=== PATIENT | male | born 1950 | race Caucasian/White ===

== ENCOUNTER 2018-02-10 13:08 | Inpatient (IN) | payer MEDICARE, OTHER ==
[~2018-02-10] VITALS: Ht 180.3 cm; Wt 74.6 kg
[~2018-02-10 13:08] MED LIST: ASPIRIN 81M81 MG/TA2 PO; BETAPACE 120MG120 MG PO; BETAPACE 80MG80 MG PO; COLACE 100100 MG/CAP PO; COUMADIN; DULCOLAX S10 MG/SUPP RC; FLOMAX 0.40.4 MG/CAP PO; FORTAMET1000 MG PO; GOOD NEIGH1200 MG/15 PO; LIPITOR 10MG10 MG PO; LISINOPRIL10 MG PO; METAMUCIL3.4 GM/DOS PO; NIACIN250 M2 PO; NIASPAN1000 MG PO; OXYCONTIN 20MG20 MG PO; PERCOCET 325 MG1 TAB PO; PLAVIX 75MG TAB75 MG PO; PRINIVIL20 MG PO; PROSCAR 5MG5 MG PO; TYLENOL 325MG325 MG PO; VITAMIN B-1000 MCG/T PO; VYTORIN; WARFARIN SODIUM5 MG PO
[2018-02-10 14:31] VITALS: BP 130/75; PULSE 68; TEMP 98.5
[2018-02-10 17:08] VITALS: BP 130/75; PULSE 70; TEMP 98.5
[2018-02-11 05:39] VITALS: BP 132/76; PULSE 80; TEMP 98.4
[2018-02-11 18:15] VITALS: BP 127/62; PULSE 81; TEMP 97.8
[2018-02-12 06:00] VITALS: BP 146/84; PULSE 60; TEMP 98.2
[2018-02-12 16:12] VITALS: BP 120/57; PULSE 65; TEMP 98.1
[2018-02-13 05:17] VITALS: BP 134/58; PULSE 86; TEMP 98.7
[2018-02-13 15:53] VITALS: BP 102/60; PULSE 75; TEMP 97.8
[2018-02-14 05:17] VITALS: BP 92/64; PULSE 66; TEMP 98
[2018-02-14 08:30] VITALS: BP 102/70
[2018-02-14 15:59] VITALS: BP 100/55; PULSE 69; TEMP 98.1
[2018-02-15 05:34] VITALS: BP 116/57; PULSE 51; TEMP 97.8
[2018-02-15 16:17] VITALS: BP 115/51; PULSE 66; TEMP 97.8
[2018-02-16 05:49] VITALS: BP 153/78; PULSE 71; TEMP 98.3
[2018-02-16 18:43] VITALS: BP 122/67; PULSE 52; TEMP 97.8
[2018-02-17 03:54] VITALS: BP 121/69; PULSE 65; TEMP 98
[2018-02-17 17:40] VITALS: BP 109/75; PULSE 82; TEMP 98.4
[2018-02-18 05:34] VITALS: BP 112/72; PULSE 80; TEMP 98.1
[2018-02-18 16:54] VITALS: BP 133/65; PULSE 79; TEMP 97.5
[2018-02-19 06:00] VITALS: BP 167/80; PULSE 62; TEMP 97.8
[2018-02-19 16:36] VITALS: BP 122/77; PULSE 79; TEMP 98.1
[2018-02-20 06:00] VITALS: BP 133/80; PULSE 60; TEMP 98.3
[2018-02-20 15:31] VITALS: BP 118/69; PULSE 84; TEMP 97.8
[2018-02-21 04:54] VITALS: BP 139/65; PULSE 75; TEMP 98.1
[2018-02-21 15:43] VITALS: BP 136/71; PULSE 68; TEMP 98.3
[2018-02-22 04:11] VITALS: BP 139/83; PULSE 73; TEMP 97.9
[2018-02-22 16:32] VITALS: BP 121/66; PULSE 76; TEMP 98.1
[2018-02-23 05:04] VITALS: BP 147/83; PULSE 65; TEMP 98.3
[2018-02-23 15:07] VITALS: BP 127/72; PULSE 67; TEMP 97.9
[2018-02-24 05:57] VITALS: BP 125/66; PULSE 58; TEMP 97.6
[2018-02-24] MEDS ORDERED: OXYCONTIN 20MG20 MG PO (08:34)
[2018-02-24] MEDS ORDERED: PERCOCET 325 MG1 TAB PO (08:34)
== END 2018-02-24 11:25 | disposition home or self-care (01) | DRG 57 ==
DX: I69.354 Hemiplegia and hemiparesis following cerebral infarction affecting left non-dominant side (principal); E44.0 Moderate protein-calorie malnutrition; I10 Essential (primary) hypertension; E11.9 Type 2 diabetes mellitus without complications; I48.91 Unspecified atrial fibrillation; R33.9 Retention of urine, unspecified
CPT/HCPCS: 99222-AI; 99232-AI; 99239; J1815

== ENCOUNTER 2018-03-03 12:53 | Outpatient (RCR) | payer MEDICARE, OTHER ==
[2018-05-01] MEDS ORDERED: EFFE25TA (17:13)
[2018-05-01] MEDS ORDERED: CYMBALTA 30MG30 MG PO (17:14)
== END 2018-05-22 10:30 | disposition home or self-care (01) ==
LOC: MKS.ESL.OT 12:53
DX: I69.354 Hemiplegia and hemiparesis following cerebral infarction affecting left non-dominant side (principal)
CPT/HCPCS: G8987-GO; G8988-GO; G8989-GO

== ENCOUNTER 2018-05-01 14:24 | Emergency (ER) | payer MEDICARE, OTHER ==
[~2018-05-01] VITALS: Ht 180.3 cm; Wt 72.7 kg
[2018-05-01 14:31] VITALS: BP 99/70; TEMP 98.7
[2018-05-01 15:50] LABS: BASO % 0.4 % (0.0-2.0); EOS # 0.2 (0.0-0.7); EOS % 2.6 % (0-4.0); GRAN # 5.5 (1.4-6.5); GRAN % 74.2 % (42.2-75.2); HEMATOCRIT 40.9 % (42.0-52.0); HEMOGLOBIN 13.4 g/dl (13.5-18.0); LYMPH # 1.2 (1.2-3.4); LYMPH % 16.1 % (20.0-51.0); MEAN CELL VOLUME 93 fl (80.0-100.0); MEAN CORPUSCULAR HEMOGLOBIN 30 pg (27.0-31.0); MEAN CORPUSCULAR HGB CONC 33 g/dl (33.0-37.0); MONO # 0.5 (0.1-0.6); MONO % 6.2 % (1.7-9.3); PLATELET COUNT 358 K/mm3 (130-400); RED BLOOD COUNT 4.41 M/mm3 (4.20-5.60); REDCELL DISTRIBUTION WIDTH-CV 12.5 % (11.5-14.5)
[2018-05-01 16:00] LABS: ALBUMIN 3.6 gm/dL (3.5-5.0); BILIRUBIN,TOTAL 0.7 mg/dL (0.0-1.0); CALCIUM 8.8 mg/dL (8.4-10.2); CREATININE, serum 0.52 mg/dL (0.66-1.25); POTASSIUM 4.2 mmol/L (3.4-5.0); TOTAL PROTEIN 7.1 gm/dL (6.4-8.2)
[2018-05-01 16:18] LABS: COLLECTION METHOD CLEAN CATCH
[2018-05-01 16:27] LABS: MUCOUS Present /lpf; SQUAMOUS EPITHELIAL 0-2 /hpf; URINE BACTERIA None Seen /hpf; URINE RBC >50 /hpf
[2018-05-01 16:28] LABS: PH 6 (5-8); URINE APPEARANCE Clear; URINE BILIRUBIN Negative (NEGATIVE); URINE BLOOD 2+ (NEGATIVE); URINE COLOR Yellow; URINE GLUCOSE Negative (NEGATIVE); URINE KETONE Negative (NEGATIVE); URINE LEUKOCYTE ESTERASE Trace (NEGATIVE); URINE NITRATE Negative (NEGATIVE); URINE PROTEIN(semi-quant) 1+ (NEGATIVE); URINE UROBILINOGEN >=4.0 mg/dL (NEGATIVE)
[2018-05-01] MEDS ORDERED: EFFE25TA (17:13)
[2018-05-01] MEDS ORDERED: CYMBALTA 30MG30 MG PO (17:14)
[2018-05-01 17:22] VITALS: PULSE 72
== END 2018-05-01 17:23 | disposition home or self-care (01) ==
LOC: COL.ER 14:24
PROVIDERS: Family Medicine
DX: S70.02XA Contusion of left hip, initial encounter (principal); I10 Essential (primary) hypertension; Z86.73 Personal history of transient ischemic attack (TIA), and cerebral infarction without residual deficits; Z87.891 Personal history of nicotine dependence; Z79.02 Long term (current) use of antithrombotics/antiplatelets; Z79.82 Long term (current) use of aspirin; W19.XXXA Unspecified fall, initial encounter

== ENCOUNTER 2018-06-07 15:08 | Observation (INO) | payer MEDICARE, OTHER ==
[~2018-06-07] VITALS: Ht 180.3 cm; Wt 70.9 kg
[~2018-06-07 15:08] MED LIST changes: +CYMBALTA 30MG30 MG PO; +EFFE25TA
[2018-06-07 16:10] LABS: BASO % 0.3 % (0.0-2.0); EOS # 0.1 (0.0-0.7); EOS % 0.7 % (0-4.0); GRAN # 5.1 (1.4-6.5); GRAN % 74.4 % (42.2-75.2); HEMATOCRIT 44.4 % (42.0-52.0); HEMOGLOBIN 14.4 g/dl (13.5-18.0); LYMPH # 1.3 (1.2-3.4); LYMPH % 18.6 % (20.0-51.0); MEAN CELL VOLUME 92 fl (80.0-100.0); MEAN CORPUSCULAR HEMOGLOBIN 30 pg (27.0-31.0); MEAN CORPUSCULAR HGB CONC 32 g/dl (33.0-37.0); MEAN PLATELET VOLUME 10.8 fl (7.4-10.4); MONO # 0.4 (0.1-0.6); MONO % 5.6 % (1.7-9.3); PLATELET COUNT 276 K/mm3 (130-400); RED BLOOD COUNT 4.82 M/mm3 (4.20-5.60); REDCELL DISTRIBUTION WIDTH-CV 12.5 % (11.5-14.5)
[2018-06-07] MEDS ORDERED: GENTLE LAXATIVE10 MG RC (16:17)
[2018-06-07] MEDS ORDERED: COLACE 100100 MG/CAP PO (16:18)
[2018-06-07 16:19] LABS: ALANINE AMINOTRANSFERASE 33 U/L (21-72); ALBUMIN 3.9 gm/dL (3.5-5.0); ALKALINE PHOSPHATASE 66 U/L (50-136); ANION GAP 9 mmol/L (7-16); AST,SGOT 30 U/L (15-37); BILIRUBIN,TOTAL 0.5 mg/dL (0.0-1.0); BLOOD UREA NITROGEN 14 mg/dL (9-20); C-REACTIVE PROTEIN 0.6 mg/dL (0.0-0.9); CALCIUM 8.9 mg/dL (8.4-10.2); CARBON DIOXIDE 29 mmol/L (22-30); CHLORIDE 101 mmol/L (98-107); CREATININE, serum 0.46 mg/dL (0.66-1.25); GLUCOSE 156 mg/dL (74-106); LIPASE 74 U/L (23-300); POTASSIUM 3.8 mmol/L (3.4-5.0); SODIUM 139 mmol/L (137-145); TOTAL PROTEIN 7.3 gm/dL (6.4-8.2)
[2018-06-07] MEDS ORDERED: EFFEXOR 75M75 MG/TAB PO (16:19)
[2018-06-07] MEDS ORDERED: GOOD NEIGH1200 MG/15 PO (16:19)
[2018-06-07 16:36] LABS: TROPONIN-I < 0.012 ng/mL (0.000-0.034)
[2018-06-07] MEDS ORDERED: ZEBETA 5MG5 MG PO (18:25)
[2018-06-07] MEDS ORDERED: TYLENOL 325MG325 MG PO (19:44)
[2018-06-07] MEDS ORDERED: GOOD NEIGH3.4 GM/Dos PO (19:48)
[2018-06-07 21:14] VITALS: BP 155/86; PULSE 70; TEMP 98.4
[2018-06-08 01:45] VITALS: BP 152/77; PULSE 56; TEMP 98.2
[2018-06-08 08:14] VITALS: BP 151/75; PULSE 69; TEMP 97.6
[2018-06-08 14:30] VITALS: BP 160/57; PULSE 74; TEMP 97.9
[2018-06-08 15:14] LABS: COLLECTION METHOD CLEAN CATCH
[2018-06-08 15:23] LABS: MUCOUS Present /lpf; PH 5 (5-8); SQUAMOUS EPITHELIAL None Seen /hpf; URINE APPEARANCE Clear; URINE BACTERIA None Seen /hpf; URINE BILIRUBIN Negative (NEGATIVE); URINE BLOOD Negative (NEGATIVE); URINE COLOR Yellow; URINE GLUCOSE Negative (NEGATIVE); URINE KETONE Negative (NEGATIVE); URINE LEUKOCYTE ESTERASE Negative (NEGATIVE); URINE NITRATE Negative (NEGATIVE); URINE PROTEIN(semi-quant) Negative (NEGATIVE); URINE UROBILINOGEN Negative (NEGATIVE)
== END 2018-06-08 17:50 | disposition home or self-care (01) ==
LOC: COL.ER 15:08 → MEDICAL 17:44
PROVIDERS: Emergency Medicine; Physician Assistant
DX: R53.1 Weakness (principal); I10 Essential (primary) hypertension; I48.91 Unspecified atrial fibrillation; E11.9 Type 2 diabetes mellitus without complications; N40.0 Benign prostatic hyperplasia without lower urinary tract symptoms; L40.9 Psoriasis, unspecified; Z88.8 Allergy status to other drugs, medicaments and biological substances; Z79.82 Long term (current) use of aspirin; Z86.718 Personal history of other venous thrombosis and embolism; Z86.711 Personal history of pulmonary embolism; Z86.73 Personal history of transient ischemic attack (TIA), and cerebral infarction without residual deficits; Z87.891 Personal history of nicotine dependence; Z82.49 Family history of ischemic heart disease and other diseases of the circulatory system; Z82.3 Family history of stroke; Z83.3 Family history of diabetes mellitus
CPT/HCPCS: G0378; G8978-GP; G8979-GP; G8987-GO; G8988-GO; J7030

== ENCOUNTER 2018-06-08 11:11 | Inpatient (IN) | payer MEDICARE, OTHER ==
[~2018-06-08] VITALS: Ht 180.3 cm; Wt 72.0 kg
[~2018-06-08 11:11] MED LIST changes: +EFFEXOR 75M75 MG/TAB PO; +GENTLE LAXATIVE10 MG RC; +GOOD NEIGH3.4 GM/Dos PO; +ZEBETA 5MG5 MG PO
[2018-06-11 19:14] VITALS: BP 138/93; PULSE 90; TEMP 98.4
[2018-06-11 20:44] VITALS: BP 138/93; PULSE 90; TEMP 98.4
[2018-06-12 05:17] VITALS: BP 159/73; PULSE 87; TEMP 97.4
[2018-06-12 18:14] VITALS: BP 138/92; PULSE 77; TEMP 98.2
[2018-06-13 05:10] VITALS: BP 122/67; PULSE 66; TEMP 98.3
[2018-06-13 17:42] VITALS: BP 105/55; PULSE 65; TEMP 97.6
[2018-06-14 04:54] VITALS: BP 108/54; PULSE 63; TEMP 98.1
[2018-06-14 18:29] VITALS: BP 105/51; PULSE 85; TEMP 98
[2018-06-15 06:14] VITALS: BP 141/74; PULSE 86; TEMP 98.5
[2018-06-15 16:45] LABS: COLLECTION METHOD RANDOM VOIDED
[2018-06-15 16:51] LABS: MUCOUS Present /lpf; PH 5 (5-8); SQUAMOUS EPITHELIAL None Seen /hpf; URINE APPEARANCE Clear; URINE BACTERIA None Seen /hpf; URINE BILIRUBIN Negative (NEGATIVE); URINE BLOOD 1+ (NEGATIVE); URINE COLOR Yellow; URINE GLUCOSE Negative (NEGATIVE); URINE KETONE Negative (NEGATIVE); URINE LEUKOCYTE ESTERASE Negative (NEGATIVE); URINE NITRATE Negative (NEGATIVE); URINE PROTEIN(semi-quant) Negative (NEGATIVE); URINE RBC >50 /hpf; URINE UROBILINOGEN Negative (NEGATIVE)
[2018-06-15 18:47] VITALS: BP 121/53; PULSE 85; TEMP 98.2
[2018-06-16 03:49] VITALS: BP 123/72; PULSE 63; TEMP 98
[2018-06-16 16:00] VITALS: BP 108/64; PULSE 73; TEMP 98.1
[2018-06-17 04:24] VITALS: BP 135/57; PULSE 66; TEMP 98.5
[2018-06-17 19:02] VITALS: BP 123/68; PULSE 64; TEMP 98
[2018-06-18 06:20] VITALS: BP 138/76; PULSE 66; TEMP 97.6
[2018-06-18 19:06] VITALS: BP 142/66; PULSE 88; TEMP 98.1
[2018-06-19 06:42] VITALS: BP 155/73; PULSE 75; TEMP 98.4
[2018-06-19 17:56] VITALS: BP 127/63; PULSE 73; TEMP 98
[2018-06-20 06:23] VITALS: BP 127/64; PULSE 73; TEMP 97.8
[2018-06-20 17:53] VITALS: BP 131/69; PULSE 72; TEMP 98.1
[2018-06-21 05:20] VITALS: BP 142/66; PULSE 67; TEMP 98.6
[2018-06-21 17:54] VITALS: BP 145/74; PULSE 92; TEMP 98.1
[2018-06-22 07:34] VITALS: BP 135/88; PULSE 77; TEMP 98
[2018-06-22 15:58] LABS: COLLECTION METHOD RANDOM VOIDED
[2018-06-22 16:13] LABS: MUCOUS Present /lpf; PH 5 (5-8); SQUAMOUS EPITHELIAL 0-2 /hpf; URINE APPEARANCE Hazy; URINE BACTERIA Rare /hpf; URINE BILIRUBIN Negative (NEGATIVE); URINE BLOOD 1+ (NEGATIVE); URINE COLOR Yellow; URINE GLUCOSE Negative (NEGATIVE); URINE KETONE Negative (NEGATIVE); URINE LEUKOCYTE ESTERASE Negative (NEGATIVE); URINE NITRATE Negative (NEGATIVE); URINE PROTEIN(semi-quant) 1+ (NEGATIVE); URINE RBC >50 /hpf; URINE UROBILINOGEN Negative (NEGATIVE)
[2018-06-22 17:49] VITALS: BP 128/70; PULSE 84; TEMP 98.2
[2018-06-23 06:08] VITALS: BP 149/65; PULSE 77; TEMP 98.1
[2018-06-23] MEDS ORDERED: LEVSIN0.125 M1 SL (08:41)
[2018-06-23] MEDS ORDERED: EFFEXOR-XR150 MG PO (08:42)
== END 2018-06-23 14:45 | disposition home or self-care (01) | DRG 57 ==
PROVIDERS: Family Medicine; Internal Medicine
DX: I69.354 Hemiplegia and hemiparesis following cerebral infarction affecting left non-dominant side (principal); I69.322 Dysarthria following cerebral infarction; Z91.81 History of falling; I48.91 Unspecified atrial fibrillation; E11.9 Type 2 diabetes mellitus without complications; Z79.01 Long term (current) use of anticoagulants; I10 Essential (primary) hypertension; N40.1 Benign prostatic hyperplasia with lower urinary tract symptoms; R31.9 Hematuria, unspecified; Z86.718 Personal history of other venous thrombosis and embolism; Z86.711 Personal history of pulmonary embolism; Z87.891 Personal history of nicotine dependence; F06.31 Mood disorder due to known physiological condition with depressive features; G89.29 Other chronic pain; L40.9 Psoriasis, unspecified; R33.9 Retention of urine, unspecified
CPT/HCPCS: 99222-AI; 99232-AI; 99239; G0463

== ENCOUNTER 2018-08-22 16:26 | Emergency (ER) | payer MEDICARE, OTHER ==
[~2018-08-22] VITALS: Ht 180.3 cm; Wt 70.9 kg
[~2018-08-22 16:26] MED LIST changes: +EFFEXOR-XR150 MG PO; +LEVSIN0.125 M1 SL
[2018-08-22 16:30] VITALS: TEMP 98.6
[2018-08-22] MEDS ORDERED: LIPITOR 40MG TA40 MG PO (17:00)
[2018-08-22 17:25] LABS: BASO % 0.6 % (0.0-2.0); EOS # 0.2 (0.0-0.7); EOS % 2.3 % (0-4.0); GRAN # 4.9 (1.4-6.5); HEMATOCRIT 38.8 % (42.0-52.0); HEMOGLOBIN 12.8 g/dl (13.5-18.0); LYMPH # 1.3 (1.2-3.4); LYMPH % 18.4 % (20.0-51.0); MEAN CELL VOLUME 91 fl (80.0-100.0); MEAN CORPUSCULAR HEMOGLOBIN 30 pg (27.0-31.0); MEAN CORPUSCULAR HGB CONC 33 g/dl (33.0-37.0); MEAN PLATELET VOLUME 10.2 fl (7.4-10.4); MONO # 0.5 (0.1-0.6); MONO % 7.4 % (1.7-9.3); PLATELET COUNT 226 K/mm3 (130-400); RED BLOOD COUNT 4.26 M/mm3 (4.20-5.60); REDCELL DISTRIBUTION WIDTH-CV 12.7 % (11.5-14.5)
[2018-08-22 17:47] LABS: ALBUMIN 3.5 gm/dL (3.5-5.0); BILIRUBIN,TOTAL 0.5 mg/dL (0.0-1.0); CALCIUM 8.8 mg/dL (8.4-10.2); CREATININE, serum 0.59 mg/dL (0.66-1.25); POTASSIUM 4.2 mmol/L (3.4-5.0); TOTAL PROTEIN 6.6 gm/dL (6.4-8.2)
[2018-08-22 17:54] LABS: COLLECTION METHOD CLEAN CATCH
[2018-08-22 18:03] LABS: MUCOUS Present /lpf; PH 5 (5-8); SQUAMOUS EPITHELIAL None Seen /hpf; URINE APPEARANCE Clear; URINE BACTERIA None Seen /hpf; URINE BILIRUBIN Negative (NEGATIVE); URINE BLOOD Negative (NEGATIVE); URINE COLOR Yellow; URINE GLUCOSE Negative (NEGATIVE); URINE KETONE Negative (NEGATIVE); URINE LEUKOCYTE ESTERASE Negative (NEGATIVE); URINE NITRATE Negative (NEGATIVE); URINE PROTEIN(semi-quant) Negative (NEGATIVE); URINE RBC 0-2 /hpf; URINE UROBILINOGEN >=4.0 mg/dL (NEGATIVE)
[2018-08-22 18:26] VITALS: BP 142/81; PULSE 79
== END 2018-08-22 18:28 | disposition home or self-care (01) ==
LOC: COL.ER 16:26
PROVIDERS: Emergency Medicine
DX: S60.052A Contusion of left little finger without damage to nail, initial encounter (principal); M20.039 Swan-neck deformity of unspecified finger(s); R26.89 Other abnormalities of gait and mobility; I10 Essential (primary) hypertension; F32.9 Major depressive disorder, single episode, unspecified; I48.91 Unspecified atrial fibrillation; Z86.711 Personal history of pulmonary embolism; Z86.718 Personal history of other venous thrombosis and embolism; Z79.02 Long term (current) use of antithrombotics/antiplatelets; Z86.73 Personal history of transient ischemic attack (TIA), and cerebral infarction without residual deficits; Z79.82 Long term (current) use of aspirin; W19.XXXA Unspecified fall, initial encounter

== ENCOUNTER → 2018-10-13 | Outpatient (CLI) | payer MEDICARE, OTHER ==
[~2018-10-13] MED LIST changes: +LIPITOR 40MG TA40 MG PO
== END ==
LOC: COL.RAD 12:17
DX: I48.2 Chronic atrial fibrillation (principal); I65.23 Occlusion and stenosis of bilateral carotid arteries; R25.9 Unspecified abnormal involuntary movements; Z86.73 Personal history of transient ischemic attack (TIA), and cerebral infarction without residual deficits
CPT/HCPCS: Q9967

== ENCOUNTER 2018-12-14 13:33 | Day surgery (SDC) | payer MEDICARE, OTHER ==
[~2018-12-14] VITALS: Ht 180.3 cm; Wt 78.0 kg
--- NOTE | 2018-12-14 14:00 | NUR ---
admitted per WC to room 354 for colonoscopy prep for 12/15, assisted out of WC and into gown and then into bed, has history of drop foot on left and AFO brace on
--- NOTE | 2018-12-14 14:30 | NUR ---
full assessment completed, see interventions for further info, at bedside and assisted with admission assessment
[2018-12-14] MEDS ORDERED: BOTOX 100100 U/VIAL INJ (14:47)
[2018-12-14 15:08] VITALS: BP 153/89; PULSE 71; TEMP 98.4
--- NOTE | 2018-12-14 15:15 | NUR ---
Dr Fernández was in to see patient, provided patient with cola per his request
--- NOTE | 2018-12-14 16:11 | NUR ---
and patient visiting with community mental health social worker, kishor states pain is8/10 but this is normal rating
--- NOTE | 2018-12-14 16:20 | NUR ---
HEATHER and SW student met with patient and to discuss discharge planning. Patient lives with his in [place] and goes to outpatient therapy at [facility]. His reports [facility] as patient is weak and does fall often. She does not want to go against his wishes and put him in assisted care yet. Patient had questions about his DPOA and living will. HEATHER informed them we have a DPOA in the computer already and explained the living will. Patients PCP is Dr Toledo and he obtains his medications from [facility]. HEATHER will continue to follow.
--- NOTE | 2018-12-14 18:38 | NUR ---
bedside shift report given to CLAIRE Machado
--- NOTE | 2018-12-14 20:00 | NUR ---
PT HAS BEEN DRINKING THE GOLYTELY WITHOUT ISSUE THIS NOC, AND IS HAVING NOTED STOOLS. LARGE FORMED STOOL NOTED INTITALLY WITH SOME SLIGHT BLOOD ON THE FECES. STOOLS BECAME LOOSE AFTER INITAL STOOL.
[2018-12-14 20:11] VITALS: BP 183/91; PULSE 116; TEMP 97.5
--- NOTE | 2018-12-14 22:00 | NUR ---
PT FINISHED GOLYTELY AND IS HAVING FREQUENT LARGE LOOSE WATERY STOOLS.
[2018-12-14 23:23] VITALS: BP 184/88; PULSE 80; TEMP 97.7
--- NOTE | 2018-12-14 23:25 | NUR ---
PT HAS ELEVATED BLOOD PRESSURE THIS HS, THIS NURSE CALLED MERON FONG FOR ORDERS FOR PRN HYDRALZINE. ADMINSITERED PRN HYDRALZINE. WILL CONTINE TO MONITOR VITALS.
--- NOTE | 2018-12-14 23:40 | NUR ---
PT HAS C/O PAIN 8-10 AND HAD SCHEDULED PAIN PILL AND REQUESTED HIS PRN PERCOCET.
[2018-12-15 04:11] VITALS: BP 155/97; PULSE 91; TEMP 98.8
--- NOTE | 2018-12-15 04:28 | NUR ---
PT HAD ALOT OF LOOSE STOOLS THIS NOC. NOT COMPLETELY CLEAR AT THIS TIME BUT ARE A LIGHT COLOR AND ARE VERY WATERY.
--- NOTE | 2018-12-15 06:35 | NUR ---
PT STOOLS HAVE DECREASED THIS AM. PT HAVING CLEAR TO YELLOW TINGED STOOLS WITHOUT ANY SOLIDITY TO THEM. HAS NEEDED PRN PAIN MEDICAION OVERNIGHT AND RECIEVED MEDS ABLE TOO. NO OTHER ISSUES OR CONSERNS VOICED.
--- NOTE | 2018-12-15 08:00 | NUR ---
Patient down for colonoscopy
[2018-12-15 08:17] VITALS: BP 159/83; PULSE 68
--- NOTE | 2018-12-15 08:40 | NUR ---
Patient in bed resting. Alert and oriented x 3. Shift assessment complete. Denies pain at this time. Denies further needs at this time.
--- NOTE | 2018-12-15 10:53 | NUR ---
SW met with patient and notary and completed living will. Copy on chart and original and copies provided to patient.
--- NOTE | 2018-12-15 12:15 | NUR ---
Patient in bed eating lunch. Post op VS stable. Patient request percocet for pain to left side of body 04/14, states that scheduled oxycodone did not help much with the pain, patient states pain is chronic. Given medications per orders. Discharge instructions provided to patient. Patient educated on maintining follow up appointments. Spouse at bedside patient will call when ready to leave.
[2018-12-15 14:34] VITALS: BP 110/64; PULSE 71
== END 2018-12-15 12:30 | disposition home or self-care (01) ==
LOC: SDCO 13:33 → SURG 13:33 → MEDICAL 13:33 → SDCO 12-15 11:45
DX: Z12.11 Encounter for screening for malignant neoplasm of colon (principal); Z86.010 Personal history of colon polyps; K57.30 Diverticulosis of large intestine without perforation or abscess without bleeding; D50.9 Iron deficiency anemia, unspecified; I10 Essential (primary) hypertension; I48.91 Unspecified atrial fibrillation; E11.9 Type 2 diabetes mellitus without complications; N40.0 Benign prostatic hyperplasia without lower urinary tract symptoms; L40.9 Psoriasis, unspecified; Z86.718 Personal history of other venous thrombosis and embolism; Z86.711 Personal history of pulmonary embolism; Z86.73 Personal history of transient ischemic attack (TIA), and cerebral infarction without residual deficits; E78.5 Hyperlipidemia, unspecified; Z79.01 Long term (current) use of anticoagulants; Z79.82 Long term (current) use of aspirin; Z82.49 Family history of ischemic heart disease and other diseases of the circulatory system; Z88.3 Allergy status to other anti-infective agents; Z87.891 Personal history of nicotine dependence; G89.29 Other chronic pain; M19.90 Unspecified osteoarthritis, unspecified site
CPT/HCPCS: OP; J0360; J2704; J3010

== ENCOUNTER 2019-01-05 13:01 | Emergency (ER) | payer MEDICARE, OTHER ==
[~2019-01-05] VITALS: Ht 180.3 cm; Wt 75.5 kg
[~2019-01-05 13:01] MED LIST changes: +BOTOX 100100 U/VIAL INJ
[2019-01-05 14:49] LABS: BASO % 0.2 % (0.0-2.0); GRAN # 8.2 (1.4-6.5); GRAN % 85.8 % (42.2-75.2); HEMATOCRIT 42.7 % (42.0-52.0); LYMPH # 0.7 (1.2-3.4); LYMPH % 7.4 % (20.0-51.0); MEAN CELL VOLUME 91 fl (80.0-100.0); MEAN CORPUSCULAR HEMOGLOBIN 30 pg (27.0-31.0); MEAN CORPUSCULAR HGB CONC 33 g/dl (33.0-37.0); MEAN PLATELET VOLUME 10.5 fl (7.4-10.4); MONO # 0.6 (0.1-0.6); MONO % 6.2 % (1.7-9.3); PLATELET COUNT 234 K/mm3 (130-400); RED BLOOD COUNT 4.72 M/mm3 (4.20-5.60); REDCELL DISTRIBUTION WIDTH-CV 13.1 % (11.5-14.5)
[2019-01-05 14:58] LABS: COLLECTION METHOD CLEAN CATCH
[2019-01-05 15:09] LABS: MUCOUS Present /lpf; PH 6 (5-8); SQUAMOUS EPITHELIAL None Seen /hpf; URINE APPEARANCE Clear; URINE BACTERIA Rare /hpf; URINE BILIRUBIN Negative (NEGATIVE); URINE BLOOD 3+ (NEGATIVE); URINE COLOR Yellow; URINE GLUCOSE Negative (NEGATIVE); URINE KETONE Negative (NEGATIVE); URINE LEUKOCYTE ESTERASE Negative (NEGATIVE); URINE NITRATE Negative (NEGATIVE); URINE PROTEIN(semi-quant) Negative (NEGATIVE); URINE RBC 20-50 /hpf; URINE UROBILINOGEN Negative (NEGATIVE)
[2019-01-05 15:25] LABS: ALANINE AMINOTRANSFERASE 18 U/L (21-72); ALBUMIN 3.6 gm/dL (3.5-5.0); ALKALINE PHOSPHATASE 82 U/L (50-136); ANION GAP 9 mmol/L (7-16); AST,SGOT 27 U/L (15-37); BILIRUBIN,TOTAL 0.8 mg/dL (0.0-1.0); BLOOD UREA NITROGEN 15 mg/dL (9-20); C-REACTIVE PROTEIN 2.6 mg/dL (0.0-0.9); CALCIUM 9.1 mg/dL (8.4-10.2); CARBON DIOXIDE 27 mmol/L (22-30); CHLORIDE 105 mmol/L (98-107); CREATININE, serum 0.84 (0.66-1.25); GLUCOSE 116 mg/dL (74-106); POTASSIUM 4.3 mmol/L (3.4-5.0); SODIUM 142 mmol/L (137-145); TOTAL PROTEIN 7.2 gm/dL (6.4-8.2)
[2019-01-05 15:34] LABS: TROPONIN-I < 0.012 ng/mL (0.000-0.035)
[2019-01-05] MEDS ORDERED: ZOFRAN 4MG T4 MG/TAB PO (16:15)
[2019-01-05 16:45] VITALS: BP 155/76; PULSE 81; TEMP 98.2
== END 2019-01-05 16:45 | disposition home or self-care (01) ==
LOC: COL.ER 13:01
PROVIDERS: Emergency Medicine
DX: R53.1 Weakness (principal); R11.2 Nausea with vomiting, unspecified; R31.9 Hematuria, unspecified; E11.9 Type 2 diabetes mellitus without complications; I10 Essential (primary) hypertension; I48.91 Unspecified atrial fibrillation; Z87.891 Personal history of nicotine dependence; Z86.73 Personal history of transient ischemic attack (TIA), and cerebral infarction without residual deficits; Z86.718 Personal history of other venous thrombosis and embolism; Z86.711 Personal history of pulmonary embolism; Z79.82 Long term (current) use of aspirin; Z79.02 Long term (current) use of antithrombotics/antiplatelets
CPT/HCPCS: J2405; J7030

== ENCOUNTER 2019-03-09 12:59 | Inpatient (IN) | payer MEDICARE, OTHER ==
[~2019-03-09] VITALS: Ht 180.3 cm; Wt 79.5 kg
[~2019-03-09 12:59] MED LIST changes: +ZOFRAN 4MG T4 MG/TAB PO
[2019-03-09 14:00] LABS: BASO % 0.3 % (0.0-2.0); EOS # 0.1 (0.0-0.7); EOS % 1.2 % (0-4.0); GRAN # 10.1 (1.4-6.5); GRAN % 85.3 % (42.2-75.2); HEMATOCRIT 43.7 % (42.0-52.0); HEMOGLOBIN 14.1 g/dl (13.5-18.0); LYMPH # 0.9 (1.2-3.4); LYMPH % 7.7 % (20.0-51.0); MEAN CELL VOLUME 92 fl (80.0-100.0); MEAN CORPUSCULAR HEMOGLOBIN 30 pg (27.0-31.0); MEAN CORPUSCULAR HGB CONC 32 g/dl (33.0-37.0); MEAN PLATELET VOLUME 10.3 fl (7.4-10.4); MONO # 0.6 (0.1-0.6); MONO % 5.2 % (1.7-9.3); PLATELET COUNT 269 K/mm3 (130-400); RED BLOOD COUNT 4.76 M/mm3 (4.20-5.60)
[2019-03-09 14:12] LABS: ALANINE AMINOTRANSFERASE 14 U/L (21-72); ALBUMIN 3.7 gm/dL (3.5-5.0); ALKALINE PHOSPHATASE 69 U/L (50-136); ANION GAP 9 mmol/L (7-16); AST,SGOT 21 U/L (15-37); BILIRUBIN,TOTAL 0.7 mg/dL (0.0-1.0); BLOOD UREA NITROGEN 13 mg/dL (9-20); CARBON DIOXIDE 27 mmol/L (22-30); CHLORIDE 105 mmol/L (98-107); CREATININE, serum 0.51 (0.66-1.25); GLUCOSE 115 mg/dL (74-106); POTASSIUM 3.8 mmol/L (3.4-5.0); SODIUM 142 mmol/L (137-145); TOTAL PROTEIN 7.2 gm/dL (6.4-8.2)
[2019-03-09 14:25] LABS: TROPONIN-I < 0.012 ng/mL (0.000-0.035)
[2019-03-09 15:21] LABS: MUCOUS Present /lpf; PH 5 (5-8); SQUAMOUS EPITHELIAL None Seen /hpf; URINE APPEARANCE Hazy; URINE BACTERIA None Seen /hpf; URINE BILIRUBIN Negative (NEGATIVE); URINE BLOOD 3+ (NEGATIVE); URINE COLOR Yellow; URINE GLUCOSE Negative (NEGATIVE); URINE KETONE Negative (NEGATIVE); URINE LEUKOCYTE ESTERASE 1+ (NEGATIVE); URINE NITRATE Negative (NEGATIVE); URINE PROTEIN(semi-quant) 1+ (NEGATIVE); URINE RBC >50 /hpf; URINE UROBILINOGEN Negative (NEGATIVE)
[2019-03-09 15:45] LABS: COLLECTION METHOD CATHETER
[2019-03-09] MEDS ORDERED: PERCOCET 325 MG1 TA3 PO (17:47)
[2019-03-09] MEDS ORDERED: EFFEXOR-XR150 MG PO (19:02)
[2019-03-09] MEDS ORDERED: OXYCONTIN 20MG20 MG PO (19:03)
[2019-03-09] MEDS ORDERED: PLAVIX 75MG TAB75 MG PO (19:05)
[2019-03-09] MEDS ORDERED: VITAMIN B12 1541 TAB PO (19:08)
[2019-03-09] MEDS ORDERED: ASPIRIN 81M81 MG/TA2 PO (19:09)
--- NOTE | 2019-03-09 20:02 | NUR ---
Pt arrived to surgical floor via wheelchair from ER. with patient. No acute distress noted. Pt put in yellow gown and high fall risk signage hung d/t hx of multiple falls. Pt c/o pain on L side that is chronic. Pt requesting pain medication. Lungs clear, but diminished in bases. Pts Spo2 95% on room air. Pt given sputum collection cup for culture. Pt reports he has not been coughing anything up. RT at bedside for breathing tx. Lab also at bedside for blood cultures. No edema noted. Pedal pulses 1+ bilaterally. BS+. Abdomen soft, nontender. Pts coccyx is reddened but blanchable. Pt reports 100% incontinence x2 days. Pt has brief on currently. Orders to place catheter are noted. Pt has L sided weakness d/t past CVA. also reports increased weakness and multiple falls over the past few days. The patient has bruising to L hand knuckles from a fall. Pt is alert and oriented at this time, but reports he has been confused at times. Bed alarm set for safety. Call light within reach. Will continue to monitor.
[2019-03-09 20:28] VITALS: BP 159/90; PULSE 71; TEMP 97.7
[2019-03-09 20:35] VITALS: BP 159/90; PULSE 71; TEMP 97.7
--- NOTE | 2019-03-09 21:15 | NUR ---
18g Coude catheter inserted via sterile technique to dependent drainage. Balloon inflated with 10cc sterile water. Urine return is clear, leonor. Pericare performed prior to insertion. New brief applied. Well tolerated by patient. phototypesetting equipment monitor was also placed. Pt is in A.fib, which he has a known history of. SCDs also applied. went home and will return in AM.
[2019-03-09 23:13] VITALS: BP 168/77; PULSE 78; TEMP 98.3
[2019-03-10] VITALS (14 sets, daily range): BP systolic 114–175; BP diastolic 56–90; PULSE 61–95; TEMP 97.8–99
--- NOTE | 2019-03-10 06:15 | NUR ---
Pt resting this AM. No distress noted. Pt has been NPO since midnight. Pt has no complaints, but states he wants "to get the show on the road". Harry catheter to dependent drainage- urinary output is clear, yellow. Blood pressure elevated but has decreased this AM to 160/85.
[2019-03-10 06:18] LABS: BASO % 0.4 % (0.0-2.0); EOS # 0.4 (0.0-0.7); EOS % 4.9 % (0-4.0); GRAN # 5.8 (1.4-6.5); GRAN % 67.1 % (42.2-75.2); HEMATOCRIT 38.1 % (42.0-52.0); HEMOGLOBIN 12.3 g/dl (13.5-18.0); LYMPH # 1.7 (1.2-3.4); LYMPH % 19.6 % (20.0-51.0); MEAN CELL VOLUME 93 fl (80.0-100.0); MEAN CORPUSCULAR HEMOGLOBIN 30 pg (27.0-31.0); MEAN CORPUSCULAR HGB CONC 32 g/dl (33.0-37.0); MEAN PLATELET VOLUME 10.5 fl (7.4-10.4); MONO # 0.7 (0.1-0.6); MONO % 7.6 % (1.7-9.3); PLATELET COUNT 222 K/mm3 (130-400); RED BLOOD COUNT 4.12 M/mm3 (4.20-5.60); REDCELL DISTRIBUTION WIDTH-CV 13.1 % (11.5-14.5)
[2019-03-10 06:29] LABS: ALBUMIN 3.1 gm/dL (3.5-5.0); BILIRUBIN,TOTAL 0.4 mg/dL (0.0-1.0); CALCIUM 8.4 mg/dL (8.4-10.2); CREATININE, serum 0.53 (0.66-1.25); POTASSIUM 3.7 mmol/L (3.4-5.0); TOTAL PROTEIN 6.4 gm/dL (6.4-8.2)
--- NOTE | 2019-03-10 08:40 | NUR ---
Patient had 500 ml of green emisis, NG back to LIS. Contacted Yesenia REGALADO to notify.
--- NOTE | 2019-03-10 09:27 | NUR ---
Patient ambulated with physical therapy, steady gait. Linens changed.
--- NOTE | 2019-03-10 11:46 | NUR ---
Clinical Laboratory Technologist offered to pray but nothing needed at this time.
--- NOTE | 2019-03-10 13:20 | NUR ---
Patient up from OR. Alert and drowsy. Spouse at bedside. Harry maintained to dependent drainage with clear peach urine present in bag. Post op fluids infusing. Post op VSS. Denies further needs at this time.
--- NOTE | 2019-03-10 14:27 | NUR ---
HEATHER met with the patient and patient's , Jess, to discuss discharge plan. The patient lives in [place] with his . The patient's reports that the patient needs assistane with ADLs and has a walker and wheelchair. Jess reports that her and her son, Dhiraj, help the patient with bathing and using the restroom. She states that he does not have any home health services, but that he does receive outpatient therapy at [facility]. She reports that the patient fell four times last week. The patient's PCP is Dr. Good Toledo and he receives his medications through [facility] or [facility]. The patient's reports no difficulties obtaining his meds. The patient's advanced directives are in EMR. The patient and his are interested in post-acute rehab upon discharge. HEATHER presented and explained the patient choice form to the patient and patient's . The patient and his preferred 1) [facility] 2) [facility]. Patient choice form signed by the patient's and she was provided a copy. HEATHER consulted [facility] Latisha Mueller. HEATHER contacted and faxed a referral to Zo at [facility]. HEATHER to continue to follow.
--- NOTE | 2019-03-10 15:31 | NUR ---
Zo, at [facility], reports that they can accept the patient for a skilled stay. Zo did request the patient's nursing notes. HEATHER faxed the patient's nursing notes to [facility]. HEATHER to inform the patient and patient's and will continue to follow.
--- NOTE | 2019-03-10 19:15 | NUR ---
Patient has done well this afternoon. Harry to dependent drainage with clear yellow urine present in bag. States pain to left side, states chronic after CVA. Denies further needs at this time. Reported off to telecommunications field engineer.
--- NOTE | 2019-03-10 22:44 | NUR ---
PT HAVING VERY LITTLE PAIN FROM [place]. PT HAVING SOME PAIN WITH HIS CHRONIC PAIN ISSUES. URINE IN MCELROY BAG CLEAR, YELLOW.
[2019-03-11 04:00] VITALS: BP 148/84; PULSE 84; TEMP 97.9
--- NOTE | 2019-03-11 06:09 | NUR ---
RESTING QUIETLY. NO STONES SEEN STRAINING URINE. URINE YVROSE IN COLOR. PERCOCET FOR PAIN.
[2019-03-11 07:12] LABS: CALCIUM 8.6 mg/dL (8.4-10.2); CREATININE, serum 0.53 (0.66-1.25); POTASSIUM 3.9 mmol/L (3.4-5.0)
[2019-03-11 07:18] LABS: BASO % 0.3 % (0.0-2.0); EOS # 0.4 (0.0-0.7); EOS % 4.8 % (0-4.0); GRAN # 5.1 (1.4-6.5); GRAN % 65.7 % (42.2-75.2); HEMATOCRIT 39.2 % (42.0-52.0); HEMOGLOBIN 12.5 g/dl (13.5-18.0); LYMPH # 1.6 (1.2-3.4); LYMPH % 20.4 % (20.0-51.0); MEAN CELL VOLUME 94 fl (80.0-100.0); MEAN CORPUSCULAR HEMOGLOBIN 30 pg (27.0-31.0); MEAN CORPUSCULAR HGB CONC 32 g/dl (33.0-37.0); MEAN PLATELET VOLUME 10.7 fl (7.4-10.4); MONO # 0.7 (0.1-0.6); MONO % 8.5 % (1.7-9.3); PLATELET COUNT 233 K/mm3 (130-400); RED BLOOD COUNT 4.19 M/mm3 (4.20-5.60); REDCELL DISTRIBUTION WIDTH-CV 13.2 % (11.5-14.5)
--- NOTE | 2019-03-11 07:30 | NUR ---
Report from CLAIRE Bradley. Pt asleep in bed, slumped over to the right side, two assist to boost up and reposition on pillows, left arm contracted, SCDs to BLE, acevedo to DD with trace of blood in urine, bed alarm on, call lt in reach. Pt requested pain med, too soon yet. BG 94.
[2019-03-11 07:32] VITALS: BP 152/71; PULSE 68; TEMP 98
--- NOTE | 2019-03-11 08:38 | NUR ---
Set up assist for breakfast, bed alarm on, call lt in reach, pt watching tv.
[2019-03-11 11:30] VITALS: BP 156/72; PULSE 63; TEMP 98.6
--- NOTE | 2019-03-11 11:48 | NUR ---
Pt bedresting watching tv, acevedo to DD with leonor hazy urine with sediment. Enc to drink more water, requests tahir milk and coke. Helped order lunch. Bed alarm on, call lt in reach, SCDs on.
[2019-03-11 16:30] VITALS: BP 161/8; BP 161/80; PULSE 78; TEMP 98
--- NOTE | 2019-03-11 18:32 | NUR ---
Pt bedresting, yellow gown and gripper socks in place, call lt in reach, IV abx infusing, SCDs on. Finished with supper, missed ACCUCHECK as pt had started eating. Helped with ordering breakfast.
--- NOTE | 2019-03-11 19:22 | NUR ---
Report to CLAIRE Bradley. Pt sitting up in bed.
[2019-03-11 20:31] VITALS: BP 148/66; PULSE 97; TEMP 98.2
[2019-03-12 01:06] VITALS: BP 175/79; PULSE 77; TEMP 98.8
--- NOTE | 2019-03-12 04:32 | NUR ---
RESTING QUIETLY. NO c/o PAIN R/T KIDNEY STONE. NO DYSPNEA. LUNG BASES DIMINISHED. PT ENCOURAGED TO DRINK MORE FLUIDS.
[2019-03-12 05:04] VITALS: BP 174/76; PULSE 92; TEMP 98.8
--- NOTE | 2019-03-12 06:55 | NUR ---
awake resting in bed, bedside shift report received from CLAIRE Bradley
--- NOTE | 2019-03-12 07:30 | NUR ---
speech therapy in to work with patient
[2019-03-12 07:53] VITALS: BP 179/80; PULSE 81; TEMP 98.1
--- NOTE | 2019-03-12 08:00 | NUR ---
resting in bed, full assessment completed, see interventions for further info, assisted with am hygiene, was incontinent of stool and care provided, assisted to sitting up to eat breakfast
--- NOTE | 2019-03-12 08:35 | NUR ---
Dr Mckeon and care team in to see patient
--- NOTE | 2019-03-12 09:15 | NUR ---
was incontinent of very large semiformed brown bowel movement, assited over to bedside commode with COLLECTION ADMINISTRATOR and occupational therapist, care provided
--- NOTE | 2019-03-12 10:44 | NUR ---
sitting up in chair and denies needs
--- NOTE | 2019-03-12 11:21 | NUR ---
Patient accepted to [facility] today. SW called patients to inform her and asked her to bring clothing. [facility] bed cancelled. Patient dc today to [facility].
[2019-03-12 12:12] VITALS: BP 147/97; PULSE 87; TEMP 98.2
[2019-03-12] MEDS ORDERED: IPRATROPIUM BROM3 M1 IH (12:16)
[2019-03-12] MEDS ORDERED: LEVAQUIN 750MG750 M1 PO (12:29)
--- NOTE | 2019-03-12 13:17 | NUR ---
has had lunch and tolerated well, discharging now to inpatient rehab
== END 2019-03-12 13:19 | DRG 659 ==
LOC: COL.ER 12:59 → SURG 18:59
PROVIDERS: Emergency Medicine; Hospitalist; Nurse Practitioner Family; Urology; ADMIT Internal Medicine
PROC: 0T778DZ Dilation of Left Ureter with Intraluminal Device, Via Natural or Artificial Opening Endoscopic (ICD-10-PCS; principal; 2019-03-10 13:00)
DX: N13.2 Hydronephrosis with renal and ureteral calculous obstruction (principal); J18.9 Pneumonia, unspecified organism; N39.0 Urinary tract infection, site not specified; R53.81 Other malaise; I10 Essential (primary) hypertension; I48.91 Unspecified atrial fibrillation; E78.5 Hyperlipidemia, unspecified; I65.23 Occlusion and stenosis of bilateral carotid arteries; Z86.718 Personal history of other venous thrombosis and embolism; N40.0 Benign prostatic hyperplasia without lower urinary tract symptoms; L40.9 Psoriasis, unspecified; E11.9 Type 2 diabetes mellitus without complications
CPT/HCPCS: 99222-AI; 99232-AI; 99239; A4216; C1769; C2617; J0690; J0696; J2704; J3010; J7030; Q9967

== ENCOUNTER 2019-04-05 11:50 | Day surgery (SDC) | payer MEDICARE, OTHER ==
[~2019-04-05] VITALS: Ht 180.3 cm; Wt 81.8 kg
[~2019-04-05 11:50] MED LIST changes: +AZO-STANDARD95 MG PO; +DESITIN MAXIMUM S40% TP; +Desenex/Lotrimin AF TP; +IPRATROPIUM BROM3 M1 IH; +LEVAQUIN 750MG750 M1 PO; +PERCOCET 325 MG1 TA3 PO; +VITAMIN B12 1541 TAB PO
[2019-04-05 12:53] VITALS: BP 172/83; PULSE 60; TEMP 98.1
[2019-04-05] MEDS ORDERED: IMODIUM 2MG CAPS2 MG PO (13:36)
[2019-04-05] MEDS ORDERED: GOOD SENSE400 MG/5 M PO (13:36)
[2019-04-05] MEDS ORDERED: DEBROX OT (13:36)
[2019-04-05] MEDS ORDERED: MYLANTA 150 ML150 M1 PO (13:37)
[2019-04-05 14:45] VITALS: BP 137/71; PULSE 67; TEMP 97.6
--- NOTE | 2019-04-05 14:45 | NUR ---
[place] [facility] [place] via cart from PACU. Pt awake and alert. C/O generalized left side pain. Pt states "I have it all the time since the stroke." Pt denies nausea. Harry to dependant drainage-draining bright red urine. Will monitor. Attala juice given per pt request. Pt does not want anything to eat at this time. Call light within reach. in room.
[2019-04-05 15:00] VITALS: BP 135/92; PULSE 136
--- NOTE | 2019-04-05 15:00 | NUR ---
Pt continues to rest. Tolerating juice and water without difficulties. Denies needs. Call light within reach.
[2019-04-05 15:15] VITALS: BP 131/76; PULSE 96
--- NOTE | 2019-04-05 15:15 | NUR ---
Pt continues to rest. Denies needs. Call light within reach.
[2019-04-05 15:30] VITALS: BP 135/81; PULSE 100
--- NOTE | 2019-04-05 15:30 | NUR ---
Pt continues to rest. Denies needs. Call light within reach.
--- NOTE | 2019-04-05 15:45 | NUR ---
Discharge instructions reviewed. Pt and voice understanding. IV site discontinued with all parts intact. Harry drained of 200ml bright red urine. Pt assisted with dressing and transfer to wheel chair with 2 nurse assist.
[2019-04-05 16:08] VITALS: BP 135/73; PULSE 85; TEMP 98.6
--- NOTE | 2019-04-05 16:15 | NUR ---
Pt transported back to [facility] via their transportation. Report given to Lindsay RANGEL at the [facility]. Questions invited and answered.
== END 2019-04-05 16:15 | disposition home or self-care (01) ==
LOC: SDCO 11:50
DX: N20.1 Calculus of ureter (principal); I48.91 Unspecified atrial fibrillation; N40.0 Benign prostatic hyperplasia without lower urinary tract symptoms; E11.9 Type 2 diabetes mellitus without complications; L40.9 Psoriasis, unspecified; I10 Essential (primary) hypertension; G89.29 Other chronic pain; M19.90 Unspecified osteoarthritis, unspecified site; I69.954 Hemiplegia and hemiparesis following unspecified cerebrovascular disease affecting left non-dominant side; E66.9 Obesity, unspecified; Z86.718 Personal history of other venous thrombosis and embolism; Z79.82 Long term (current) use of aspirin; Z79.02 Long term (current) use of antithrombotics/antiplatelets; Z88.3 Allergy status to other anti-infective agents; Z87.891 Personal history of nicotine dependence; Z83.3 Family history of diabetes mellitus; Z82.49 Family history of ischemic heart disease and other diseases of the circulatory system
CPT/HCPCS: C1769; C1894; C2617; J0690; J1100; J1885; J2405; J2704; J3010; J7120

== ENCOUNTER 2019-07-03 16:59 | Emergency (ER) | payer MEDICARE, OTHER ==
[~2019-07-03] VITALS: Ht 180.3 cm; Wt 72.7 kg
[~2019-07-03 16:59] MED LIST changes: +DEBROX OT; +GOOD SENSE400 MG/5 M PO; +IMODIUM 2MG CAPS2 MG PO; +MYLANTA 150 ML150 M1 PO
[2019-07-03 17:15] VITALS: TEMP 97.5
[2019-07-03 17:40] LABS: COLLECTION METHOD CATHETER
[2019-07-03 17:53] LABS: BUDDING YEAST Present /hpf; MUCOUS Present /lpf; PH 5 (5-8); SQUAMOUS EPITHELIAL 0-2 /hpf; URINE APPEARANCE Turbid; URINE BACTERIA Rare /hpf; URINE BILIRUBIN Negative (NEGATIVE); URINE BLOOD 1+ (NEGATIVE); URINE CALCIUM OXALATE CRYSTAL Present /hpf; URINE COLOR Amber; URINE GLUCOSE Negative (NEGATIVE); URINE KETONE Negative (NEGATIVE); URINE LEUKOCYTE ESTERASE 3+ (NEGATIVE); URINE NITRATE Positive (NEGATIVE); URINE PROTEIN(semi-quant) 2+ (NEGATIVE); URINE RBC >50 /hpf; URINE UROBILINOGEN Negative (NEGATIVE)
[2019-07-03 19:00] VITALS: BP 148/68; PULSE 81
== END 2019-07-03 19:00 | disposition home or self-care (01) ==
LOC: COL.ER 16:59
PROVIDERS: Family Medicine
DX: N47.2 Paraphimosis (principal); Z79.02 Long term (current) use of antithrombotics/antiplatelets; Z79.82 Long term (current) use of aspirin; Z86.73 Personal history of transient ischemic attack (TIA), and cerebral infarction without residual deficits

== ENCOUNTER 2020-06-21 18:33 | Inpatient (IN) | payer MEDICARE, OTHER ==
[~2020-06-21] VITALS: Ht 180.3 cm; Wt 100.7 kg
[2020-06-21 18:52] LABS: COLLECTION METHOD CATHETER
[2020-06-21 18:54] LABS: BASO % 0.2 % (0.0-2.0); EOS # 0.2 (0.0-0.7); GRAN # 7.7 (1.4-6.5); GRAN % 87.3 % (42.2-75.2); HEMATOCRIT 47.1 % (42.0-52.0); HEMOGLOBIN 15.4 g/dl (13.5-18.0); LYMPH # 0.7 (1.2-3.4); LYMPH % 7.9 % (20.0-51.0); MEAN CELL VOLUME 90 fl (80.0-100.0); MEAN CORPUSCULAR HEMOGLOBIN 30 pg (27.0-31.0); MEAN CORPUSCULAR HGB CONC 33 g/dl (33.0-37.0); MEAN PLATELET VOLUME 10.8 fl (7.4-10.4); MONO # 0.2 (0.1-0.6); MONO % 2.4 % (1.7-9.3); PLATELET COUNT 242 K/mm3 (130-400); RED BLOOD COUNT 5.22 M/mm3 (4.20-5.60); REDCELL DISTRIBUTION WIDTH-CV 13.3 % (11.5-14.5)
[2020-06-21 19:01] LABS: INR 1.1 (0.8-3.0); PROTHROMBIN TIME 12.8 SECONDS (9.7-12.8)
[2020-06-21 19:08] LABS: ALANINE AMINOTRANSFERASE 25 U/L (4-49); ALBUMIN 3.8 gm/dL (3.5-5.0); ALKALINE PHOSPHATASE 95 U/L (50-136); ANION GAP 9 mmol/L (7-16); AST,SGOT 41 U/L (15-37); BILIRUBIN,TOTAL 0.7 mg/dL (0.0-1.0); BLOOD UREA NITROGEN 11 mg/dL (9-20); CALCIUM 8.4 mg/dL (8.4-10.2); CARBON DIOXIDE 24 mmol/L (22-30); CHLORIDE 107 mmol/L (98-107); CREATININE, serum 0.51 (0.66-1.25); GLUCOSE 117 mg/dL (74-106); POTASSIUM 4.2 mmol/L (3.4-5.0); SODIUM 140 mmol/L (137-145); TOTAL PROTEIN 7.7 gm/dL (6.4-8.2)
[2020-06-21 19:18] LABS: MUCOUS Present /lpf; PH 5 (5-8); SQUAMOUS EPITHELIAL None Seen /hpf; URINE APPEARANCE Cloudy; URINE BACTERIA Moderate /hpf; URINE BILIRUBIN Negative (NEGATIVE); URINE BLOOD 2+ (NEGATIVE); URINE COLOR Amber; URINE GLUCOSE Negative (NEGATIVE); URINE KETONE Negative (NEGATIVE); URINE LEUKOCYTE ESTERASE 2+ (NEGATIVE); URINE NITRATE Positive (NEGATIVE); URINE PROTEIN(semi-quant) 2+ (NEGATIVE); URINE RBC >50 /hpf; URINE UROBILINOGEN Negative (NEGATIVE)
[2020-06-21 19:33] LABS: TROPONIN-I < 0.012 ng/mL (0.000-0.035)
[2020-06-21 20:35] LABS: MAGNESIUM 1.4 mg/dL (1.6-2.3)
[2020-06-21 21:07] LABS: TSH w REFLEX 1.25 uIU/mL (0.465-4.680)
[2020-06-21] MEDS ORDERED: TYLENOL 8 HR PO (22:03)
[2020-06-21] MEDS ORDERED: ZESTRIL40 MG PO (22:05)
[2020-06-21] MEDS ORDERED: HUMIRA PEN40 MG/0.8 SQ (22:05)
[2020-06-21 22:58] VITALS: BP 114/71; PULSE 85; TEMP 98.5
--- NOTE | 2020-06-21 22:58 | NUR ---
Patient arrived via stretcher from ER. Patient alert and responsive, although responses are delayed and only responds with very short simple phrases. Able to follow basic commands. Attached to all monitors. Skin assessment completed; Patient has known psoriasis. Patient gluteal skin is reddend and raw with scaly and flaky patches. Patient's back is also reddened patchy areas of dryness. Groin is also reddened. Lindsay-care provided. Will continue to monitor.
[2020-06-21 23:59] VITALS: O2SAT 98
[2020-06-22] VITALS (740 sets, daily range): BP systolic 114–160; BP diastolic 58–98; PULSE 71–103; TEMP 97.9–99.3; O2SAT 51–100
--- NOTE | 2020-06-22 | NUR ---
Patient coughed forcefully several times after administering pills and water. Afterwards, patient called several times to say "I'm thirsty". Attempted to try ice chips and patient tolerated without difficulty. Will continue to monitor.
[2020-06-22 05:07] LABS: HEMOGLOBIN 13.8 g/dl (13.5-18.0); MEAN CELL VOLUME 92 fl (80.0-100.0); MEAN CORPUSCULAR HEMOGLOBIN 30 pg (27.0-31.0); MEAN CORPUSCULAR HGB CONC 32 g/dl (33.0-37.0); MEAN PLATELET VOLUME 10.8 fl (7.4-10.4); PLATELET COUNT 211 K/mm3 (130-400); RED BLOOD COUNT 4.66 M/mm3 (4.20-5.60); REDCELL DISTRIBUTION WIDTH-CV 13.7 % (11.5-14.5)
[2020-06-22 05:18] LABS: ALBUMIN 3.1 gm/dL (3.5-5.0); BILIRUBIN,TOTAL 0.7 mg/dL (0.0-1.0); CALCIUM 7.9 mg/dL (8.4-10.2); CREATININE, serum 0.54 (0.66-1.25); POTASSIUM 4.2 mmol/L (3.4-5.0); TOTAL PROTEIN 6.3 gm/dL (6.4-8.2)
--- NOTE | 2020-06-22 05:52 | NUR ---
Patient had large soft formed BM. Assisted with jovan-care and repositioning. Critical WBC count called to this nurse. Hospitalist notified; no new orders at this time.
[2020-06-22 05:53] LABS: BAND 22 % (0-10); LYMPHOCYTE 8 % (20.0-51.0); NEUTROPHILS 67 % (42.0-75.2); PLATELET ESTIMATE NORMAL (NORMAL)
--- NOTE | 2020-06-22 08:00 | NUR ---
Shift assessment complete at this time. Plan of care reviewed at bedside with limited success r/t some minor confusion. Vitals stable. Denies pain or any other discomfort. Currently stable HR with well-controlled rate on 5 mg/hr of Cardizem. Bed in low position, call light within reach.
--- NOTE | 2020-06-22 12:00 | NUR ---
Pt resting in bed. Denies pain or any other discomforts. Bed in low position, call light within reach. Vitals stable at this time while on diltiazem gtt at 5 mg/hr.
--- NOTE | 2020-06-22 13:59 | NUR ---
SW met with patient at his bedside, however patient could not tolerate interview. Patient contacted patients Jess at [phone] to complete intake. indicated that patient resides in [facility] with as his care support and EMR. Patients indicated that he is "Non Weight Bearing," and that Patient does have a DPOA. indicated that when mobile, it takes 2 people to get patient into a wheelchair, and that the patient currently receives HH services with [facility] (they take vitals and give patient a bath). Patients reports that patients PCP is Dr. Yo, and he does not have any upcoming appointments. Patient receives his medications from [facility] and [facility] with no concerns. SW will continue to follow, as there were no current recommendations for care.
[2020-06-23] VITALS (308 sets, daily range): BP systolic 135–176; BP diastolic 69–98; PULSE 72–98; TEMP 98–98.7; O2SAT 85–100
[2020-06-23 05:26] LABS: BASO % 0.2 % (0.0-2.0); EOS # 0.1 (0.0-0.7); EOS % 0.6 % (0-4.0); GRAN # 12.3 (1.4-6.5); GRAN % 86.8 % (42.2-75.2); HEMOGLOBIN 13.2 g/dl (13.5-18.0); LYMPH % 6.7 % (20.0-51.0); MEAN CELL VOLUME 91 fl (80.0-100.0); MEAN CORPUSCULAR HEMOGLOBIN 29 pg (27.0-31.0); MEAN CORPUSCULAR HGB CONC 32 g/dl (33.0-37.0); MONO # 0.8 (0.1-0.6); MONO % 5.3 % (1.7-9.3); PLATELET COUNT 206 K/mm3 (130-400); REDCELL DISTRIBUTION WIDTH-CV 13.6 % (11.5-14.5)
[2020-06-23 05:43] LABS: ALBUMIN 3.3 gm/dL (3.5-5.0); BILIRUBIN,TOTAL 0.9 mg/dL (0.0-1.0); CREATININE, serum 0.43 (0.66-1.25); POTASSIUM 4.1 mmol/L (3.4-5.0); TOTAL PROTEIN 6.8 gm/dL (6.4-8.2)
--- NOTE | 2020-06-23 08:40 | NUR ---
DR BAE BEDSIDE, UPDATED RN THAT JOAN AND CARDIOVERSION WILL BE CANCELLED AND AFTER ORDERED SWALLOW PT WILL RESUME PO RATE AND [facility]PS MED WILL BE RESTARTED PO INTAKE ALLOWS
--- NOTE | 2020-06-23 10:16 | NUR ---
PT SPO2 77%, PT PLACED ON 3L NC, SPO2- 99%. WILL UPDATE RT AND CONTINUE TO MONITOR.
--- NOTE | 2020-06-23 10:28 | NUR ---
PT RESTING IN BED, PT/OT CURRENTLY AT BEDSIDE, PT DENIES PAIN OR SOB BUT SPO2 DROPPED AND PT PLACED ON O2 @ 3L BUT NOW DOWN TO 2L. PT/OT WORKING TO GET HIMEUP IN CHAIR. WILL CONTINUE TO MONITOR. BEDSIDE ROUNDING COMPLETE.
--- NOTE | 2020-06-23 10:30 | NUR ---
Test Specialist contacted patient's , Jess to review discharge plan and PT's recommendation for post acute rehab. Jess states she is open to this is patient will benefit from it and if insurance covers it. SW reviewed local options with Jess who advised preferences would be 1) [facility] and 2) [facility]. Jess advised that patient had a poor experience at [facility] a few years ago and does not want a referral sent there. HEATHER contacted Alisha, [facility] Director to give referral. HEATHER contacted Abbie at [facility] then faxed referral. SW contacted Hui at [facility] and Colleen at Dr. Yo's office to provide update on discharge plan. Patient has DPOA-HC in EMR which designates his , Jess then their oldest son, Dhiraj as an alternate. SW will continue to follow.
--- NOTE | 2020-06-23 15:20 | NUR ---
REPORT GIVEN TO CLAIRE SANCHES MS. RETOUCHER PHOTOENGRAVING WAS CALLED TO FIND OUT WHAT TIME THEY WOULD BE DOING PT ECHO, THERE WAS NO ANSWER.
--- NOTE | 2020-06-23 15:53 | NUR ---
WAS CALLED AND NOTIFIED OF PT TX TO MS 308.
--- NOTE | 2020-06-23 19:32 | NUR ---
Patient alert, oriented to self and place. hard of hearing. acevedo in place. 75mL/hr NS. telemetry show Afib. Room air. on Denio thick. Patient able feed self. resting in bed at the moment. Report given to night nurse Anastasia.
--- NOTE | 2020-06-23 20:00 | NUR ---
Received report from CLAIRE Hampton. Pt a/ox4. [place]. Able to make needs known. States wanting to order breakfast, this RN will order his bfast in the AM. denies any pain at this time. Harry intact. Tele monitor in place. IVF infusing to RH, intact, dressing CDI. INT to RFA and LH intact, flushed w/o complications, dressing CDI. On nectar thickened liquids. SCD in place to BLE. PT turned and repositioned. Ulcer to rt buttocks. Will monitor. Call light within reach.
[2020-06-24] VITALS (7 sets, daily range): BP systolic 125–177; BP diastolic 70–109; PULSE 74–94; TEMP 97.5–98.4
[2020-06-24 07:02] LABS: BASO % 0.4 % (0.0-2.0); EOS # 0.6 (0.0-0.7); EOS % 6.6 % (0-4.0); GRAN % 66.6 % (42.2-75.2); HEMATOCRIT 42.2 % (42.0-52.0); HEMOGLOBIN 13.8 g/dl (13.5-18.0); LYMPH # 1.4 (1.2-3.4); LYMPH % 15.1 % (20.0-51.0); MEAN CELL VOLUME 91 fl (80.0-100.0); MEAN CORPUSCULAR HEMOGLOBIN 30 pg (27.0-31.0); MEAN CORPUSCULAR HGB CONC 33 g/dl (33.0-37.0); MEAN PLATELET VOLUME 11.5 fl (7.4-10.4); MONO % 10.7 % (1.7-9.3); PLATELET COUNT 233 K/mm3 (130-400); RED BLOOD COUNT 4.66 M/mm3 (4.20-5.60); REDCELL DISTRIBUTION WIDTH-CV 13.7 % (11.5-14.5)
--- NOTE | 2020-06-24 07:06 | NUR ---
Report given to CLAIRE Ulloa.
[2020-06-24 07:12] LABS: ALBUMIN 3.4 gm/dL (3.5-5.0); BILIRUBIN,TOTAL 0.6 mg/dL (0.0-1.0); CALCIUM 8.4 mg/dL (8.4-10.2); CREATININE, serum 0.49 (0.66-1.25); POTASSIUM 3.6 mmol/L (3.4-5.0); TOTAL PROTEIN 6.9 gm/dL (6.4-8.2)
--- NOTE | 2020-06-24 10:08 | NUR ---
Assessment complete. Patient sitting up in recliner eating breakfast. I thicken his liquids to nectar thick as they were thin. No complaints of pain or discomfort were expressed at thsi time. Patient states that he feels pretty good today. After assessment patient continued to eat on his own but did have a pretty serious coughing fit, he stated "it when down the wrong pipe". Per report all foods were clerared as mechanical soft that came with his breakfast. Coughing fit has now resolved and patient is stable, tele previous called stating heart rate was in 170s at times, HR is now stabilzed.Will continue to monitor patient. No other needs at this time.
--- NOTE | 2020-06-24 18:29 | NUR ---
Patient has a good day. He sat up in recliner all day after PT moved him there using the sit to stand. He was incontinent of stool right at the end of shift. Sit to stand was used to clean up and move him back to bed. Patient tolerated this very well. IV site is CD&I, fluids have been D/C'd. Pt did not cough on dinner but he did not eat much. No other needs. PAtient is now back in bed and comfortable. SCD's in place.
--- NOTE | 2020-06-24 21:21 | NUR ---
Pt sleeping upon entry. Awakens to voice and touch. Denies any pain at this time. States no needs. MEds administered. Tele monitor in place. INT to LH, RH, RFA intact, flushed w/o complications, dressing CDI. SCD in place. Juice provided, honey thickened. Pt drank juice and took pill w/o issue. Harry cath intact, secured to LL, draining clear dark yellow urine. Will monitor pt. Call light within reach.
[2020-06-25] VITALS: BP 130/83; PULSE 74; TEMP 98.2
[2020-06-25 04:00] VITALS: BP 155/64; PULSE 88; TEMP 98.9
--- NOTE | 2020-06-25 06:04 | NUR ---
Pt had scant amount of dark brown BM. Pt cleaned and changed, barrier cream applied, small abrasion to rt buttocks, no drainage. Pt repositioned in bed. Needs met. Call light within reach.
--- NOTE | 2020-06-25 07:03 | NUR ---
Report given to CLAIRE Ulloa.
[2020-06-25 07:51] LABS: BASO % 0.5 % (0.0-2.0); EOS # 0.9 (0.0-0.7); EOS % 10.6 % (0-4.0); GRAN # 4.8 (1.4-6.5); GRAN % 59.5 % (42.2-75.2); HEMATOCRIT 43.8 % (42.0-52.0); HEMOGLOBIN 14.1 g/dl (13.5-18.0); LYMPH # 1.5 (1.2-3.4); LYMPH % 18.7 % (20.0-51.0); MEAN CELL VOLUME 90 fl (80.0-100.0); MEAN CORPUSCULAR HEMOGLOBIN 29 pg (27.0-31.0); MEAN CORPUSCULAR HGB CONC 32 g/dl (33.0-37.0); MEAN PLATELET VOLUME 11.2 fl (7.4-10.4); MONO # 0.8 (0.1-0.6); MONO % 10.2 % (1.7-9.3); PLATELET COUNT 253 K/mm3 (130-400); RED BLOOD COUNT 4.87 M/mm3 (4.20-5.60); REDCELL DISTRIBUTION WIDTH-CV 13.7 % (11.5-14.5)
[2020-06-25 08:07] LABS: ALBUMIN 3.3 gm/dL (3.5-5.0); BILIRUBIN,TOTAL 0.5 mg/dL (0.0-1.0); CALCIUM 8.5 mg/dL (8.4-10.2); CREATININE, serum 0.49 (0.66-1.25); POTASSIUM 3.4 mmol/L (3.4-5.0); TOTAL PROTEIN 6.9 gm/dL (6.4-8.2)
[2020-06-25 08:23] VITALS: BP 149/91; PULSE 92; TEMP 97.7
--- NOTE | 2020-06-25 09:46 | NUR ---
Water Purifier attended clinical rounds with the team. SW contacted the patient's , Jess and she was on speaker phone. The patient is stable and at baseline. He will tentatively discharge today with continued support from [facility] services. The patient will need van transport from the hospital. Per Jess [facility] will provide this transport. SW to contact [facility].
[2020-06-25] MEDS ORDERED: OMNICEF 300MG300 MG PO (09:55)
--- NOTE | 2020-06-25 10:11 | NUR ---
Michael with transportation at [facility] will transport the patient at 1330. Per the patient's , Jess, the patient will need two person assist to get in the home. She states two aides from [facility] usually assist. HEATHER contacted Dixie with [facility] and she will arrange for aides to assist with at the patient's home. HEATHER presented the IM form to the Jess. She verbalized understanding a gave HEATHER permission to sign on her behalf. A copy was provided to the patient and the original was placed in the chart.
--- NOTE | 2020-06-25 10:31 | NUR ---
Assessment complete. Patient sitting up in recliner at this time. PAtient was moved there via the sit to stand. PAtient did better with breakfast than yesterday but did still have some coughing. He is alert and oriented to self but nothing else. He had to ask me where he was. IV site is CD&I. Harry patent draining clear yellow urine at this time. No complaints of pain or discomfort at this time. Will continue to monitor. Call light is reach.
--- NOTE | 2020-06-25 10:50 | NUR ---
The patient is to discharge home today, 06/25. He will continue with [facility] duty services and home health services. The services will be PT/OT/ST/Nursing. HEATHER faxed discharge orders to [facility]. The patient will be transported at 1330. The team, the patient, and his , Jess were in agreeance. There are no additional needs at this time.
[2020-06-25 11:31] VITALS: BP 152/85; PULSE 66; TEMP 97.9
--- NOTE | 2020-06-25 15:20 | NUR ---
Patient left the floor at this time. Discharge paperwork was sent with the patient. Sit to stand lift was used to move the patient from the recliner into the wheelchair. Patient had a large incontinent bowel movement right before transfer. barrier cream applied to reddened, dry scaling bottom.
== END 2020-06-25 15:22 | disposition home health service (06) | DRG 698 ==
LOC: COL.ER 18:33 → ICU 18:50 → MEDICAL 06-23 16:07
PROVIDERS: Emergency Medicine; Hospitalist; Nurse Practitioner Family; ADMIT Student in an Organized Health Care Education/Training Program
DX: T83.511A Infection and inflammatory reaction due to indwelling urethral catheter, initial encounter (principal); A41.9 Sepsis, unspecified organism; R65.20 Severe sepsis without septic shock; I69.354 Hemiplegia and hemiparesis following cerebral infarction affecting left non-dominant side; I48.91 Unspecified atrial fibrillation; E78.5 Hyperlipidemia, unspecified; I10 Essential (primary) hypertension; Z66 Do not resuscitate; N40.0 Benign prostatic hyperplasia without lower urinary tract symptoms; E11.9 Type 2 diabetes mellitus without complications; L40.9 Psoriasis, unspecified; K59.00 Constipation, unspecified; E83.42 Hypomagnesemia; I69.391 Dysphagia following cerebral infarction; I69.392 Facial weakness following cerebral infarction; Z20.828 Contact with and (suspected) exposure to other viral communicable diseases; Z86.718 Personal history of other venous thrombosis and embolism; Z86.711 Personal history of pulmonary embolism; Z87.891 Personal history of nicotine dependence
CPT/HCPCS: 99223-AI; 99232-AI; 99233-AI; 99239; J0696; J1815; J2543; J3475; J7030; Q9967

== ENCOUNTER → 2020-07-18 | Outpatient (CLI) | payer MEDICARE, OTHER ==
[~2020-07-18] MED LIST changes: +HUMIRA PEN40 MG/0.8 SQ; +OMNICEF 300MG300 MG PO; +TYLENOL 8 HR PO; +ZESTRIL40 MG PO
[2020-07-18 19:13] LABS: COLLECTION METHOD CATHETER
[2020-07-18 19:41] LABS: MUCOUS Present /lpf; PH 7 (5-8); SQUAMOUS EPITHELIAL None Seen /hpf; URINE APPEARANCE Clear; URINE BACTERIA Rare /hpf; URINE BILIRUBIN Negative (NEGATIVE); URINE BLOOD 2+ (NEGATIVE); URINE COLOR Yellow; URINE GLUCOSE Negative (NEGATIVE); URINE KETONE Negative (NEGATIVE); URINE LEUKOCYTE ESTERASE 2+ (NEGATIVE); URINE NITRATE Positive (NEGATIVE); URINE PROTEIN(semi-quant) Negative (NEGATIVE); URINE RBC 0-2 /hpf; URINE UROBILINOGEN Negative (NEGATIVE)
== END ==
LOC: ZCOL.LAB 14:58
PROVIDERS: Internal Medicine
DX: R41.0 Disorientation, unspecified (principal)

== ENCOUNTER 2020-12-08 15:18 | Inpatient (IN) | payer MEDICARE, OTHER ==
[2020-12-08] VITALS (84 sets, daily range): BP systolic 121–124; BP diastolic 80–84; PULSE 112–114; TEMP 99.2; O2SAT 94–98
[~2020-12-08] VITALS: Ht 180.3 cm; Wt 97.7 kg
[2020-12-08 16:01] LABS: BASO % 0.3 % (0.0-2.0); EOS # 0.1 (0.0-0.7); EOS % 0.7 % (0-4.0); GRAN # 10.8 (1.4-6.5); GRAN % 73.9 % (42.2-75.2); HEMOGLOBIN 14.7 g/dl (13.5-18.0); LYMPH # 2.2 (1.2-3.4); LYMPH % 14.9 % (20.0-51.0); MEAN CELL VOLUME 93 fl (80.0-100.0); MEAN CORPUSCULAR HEMOGLOBIN 30 pg (27.0-31.0); MEAN CORPUSCULAR HGB CONC 32 g/dl (33.0-37.0); MEAN PLATELET VOLUME 10.1 fl (7.4-10.4); MONO # 1.4 (0.1-0.6); MONO % 9.5 % (1.7-9.3); PLATELET COUNT 317 K/mm3 (130-400); RED BLOOD COUNT 4.96 M/mm3 (4.20-5.60); REDCELL DISTRIBUTION WIDTH-CV 13.9 % (11.5-14.5)
[2020-12-08 16:09] LABS: INR 1.2 (0.8-3.0); PROTHROMBIN TIME 12.9 SECONDS (9.7-12.8)
[2020-12-08 16:12] LABS: ALBUMIN 3.4 gm/dL (3.5-5.0); BILIRUBIN,TOTAL 0.8 mg/dL (0.0-1.0); C-REACTIVE PROTEIN 7.2 mg/dL (0.0-0.9); CALCIUM 8.4 mg/dL (8.4-10.2); CREATININE, serum 0.51 (0.66-1.25); POTASSIUM 3.9 mmol/L (3.4-5.0); TOTAL PROTEIN 8.2 gm/dL (6.4-8.2)
[2020-12-08 17:19] LABS: COLLECTION METHOD CATHETER
[2020-12-08 17:58] LABS: BUDDING YEAST Present /hpf; MUCOUS Present /lpf; PH 6 (5-8); SQUAMOUS EPITHELIAL None Seen /hpf; URINE APPEARANCE Cloudy; URINE BACTERIA Many /hpf; URINE BILIRUBIN Negative (NEGATIVE); URINE BLOOD 3+ (NEGATIVE); URINE COLOR Amber; URINE GLUCOSE Negative (NEGATIVE); URINE KETONE Negative (NEGATIVE); URINE LEUKOCYTE ESTERASE 3+ (NEGATIVE); URINE NITRATE Positive (NEGATIVE); URINE PROTEIN(semi-quant) 2+ (NEGATIVE); URINE RBC >50 /hpf; URINE UROBILINOGEN Negative (NEGATIVE)
--- NOTE | 2020-12-08 20:05 | NUR ---
Pt arrived to ICU room 1 via cart with DASHA Sepulveda RN. Pt transferred from the cart to the ICU bed with the assistance of three. Pt repositioned on the bed and pericare provided. Call light within reach.
[2020-12-08] MEDS ORDERED: ZYRTEC 10MG10 MG PO (20:42)
[2020-12-08] MEDS ORDERED: PROBIOTIC ACID1 EAC3 PO (20:42)
[2020-12-08] MEDS ORDERED: BACTROBAN 22GM22 GM NAS (20:43)
[2020-12-08] MEDS ORDERED: COSENTYX (150 MG/1 M SQ (20:43)
[2020-12-08] MEDS ORDERED: TEMOVATE0.052 TOP (20:43)
[2020-12-08] MEDS ORDERED: IMODIUM 2MG CAPS2 MG PO (20:45)
[2020-12-08] MEDS ORDERED: ALMACONE 360 M360 ML PO (20:45)
[2020-12-08] MEDS ORDERED: DEBROX OT (20:45)
[2020-12-08] MEDS ORDERED: MILK OF MA400 MG/52 (20:45)
[2020-12-08] MEDS ORDERED: AZO-STANDARD95 MG PO (20:46)
[2020-12-08] MEDS ORDERED: DESITIN MULTI-P99 G1 TP (20:46)
[2020-12-08] MEDS ORDERED: IPRATROPIUM BROM3 M1 IH (20:47)
[2020-12-08] MEDS ORDERED: DULCOLAX S10 MG/SUPP RC (20:47)
[2020-12-08] MEDS ORDERED: HYDROCORTISO28.35 GM TOP (20:47)
[2020-12-09] VITALS (406 sets, daily range): BP systolic 131–171; BP diastolic 61–93; PULSE 60–109; TEMP 98.2–99.4; O2SAT 71–100
--- NOTE | 2020-12-09 07:22 | NUR ---
Report given to CLAIRE Pichardo.
--- NOTE | 2020-12-09 09:30 | NUR ---
calls for update at this time.
--- NOTE | 2020-12-09 10:33 | NUR ---
Aircraft Maintenance Supervisor contacted patient's , Jess (ph#[phone]) to discuss discharge planning. Patient and Jess live in [place] and patient sees Dr. Trang Yo for primary care. Patient has most of his medications delivered to the home from [facility], however Jess also utilizes [facility] as needed. Patient has a hospital bed, wheelchair, and shower chair at home. Patient can feed himself independently however requires total assistance with all ADLS which are provided by [facility] and private duty services. Patient is a two person assist. Patient has Advance Directives which designate Jess and patient's son, Dhiraj as DPOA-HC. Jess reports that Dhiraj lives nearby and can help when needed, but also that he has his own family and job. Jess advised the plan is for patient to return home with [facility] providing transportation. SW will need to coordinate with [facility] to have aides assist patient into the home upon discharge. SW contacted Hui at [facility] and faxed clinical updates. Hui advised that two aides go out to the home every day for about an hour to do bed baths, linen changes, and other ADLS. Hui reports that patient also has a nurse visit once a week for humara injections and a monthly nurse visit for catheter changes. Hui advised that they have tried to talk with Jess about placement for patient but that she is not open to it. PT/OT ordered for patient. Discharge Plan: Home with continued services from [facility].
--- NOTE | 2020-12-09 12:30 | NUR ---
Shirley with ST here to see patient. [facility] nectar thin liquids.
--- NOTE | 2020-12-09 13:00 | NUR ---
orders received for PO Cardizem and after one hour turn off the drip. then patient can transfer to the floor.
--- NOTE | 2020-12-09 14:51 | NUR ---
Dr. Alvarez called for transfer orders.
--- NOTE | 2020-12-09 17:31 | NUR ---
arrived on unit from ICU per bed, has bright red excoriation to groin under testicles and also on buttocks and up his back, has interdry around testicles, acevedo cath in place draining clear yellow urine, supper at bedside, RN CLINICAL RESOURCE in to assist him with eating
--- NOTE | 2020-12-09 17:34 | NUR ---
PATIENT TRANSFERRED UP TO 356, DUTCH NOTIFIED.
--- NOTE | 2020-12-09 18:50 | NUR ---
bedside shift report given to CLAIRE Mckeon
--- NOTE | 2020-12-09 19:21 | NUR ---
Received report from Elida. Seen patient eating his dinner. He is on sitting position in bed. Added nectar thick on his drinks. Bed alarm on.
--- NOTE | 2020-12-09 20:15 | NUR ---
Assesment done. Placed SCD on bilateral lower extremities. Flushed INT on right wrist, patient states he feels it is dripping. Changed tegaderm on IV site. Flushed INT and with blood return. He denies pain.
[2020-12-10 04:21] VITALS: BP 156/74; PULSE 98; TEMP 98.7
--- NOTE | 2020-12-10 05:52 | NUR ---
Patient had on and off sleep. He was repositioned frequently. He denies pain. No bowel movement during the night.
[2020-12-10 07:10] LABS: BASO % 0.2 % (0.0-2.0); EOS # 0.1 (0.0-0.7); EOS % 0.9 % (0-4.0); GRAN # 7.7 (1.4-6.5); GRAN % 79.5 % (42.2-75.2); HEMATOCRIT 37.1 % (42.0-52.0); LYMPH # 0.9 (1.2-3.4); LYMPH % 9.7 % (20.0-51.0); MEAN CELL VOLUME 92 fl (80.0-100.0); MEAN CORPUSCULAR HEMOGLOBIN 29 pg (27.0-31.0); MEAN CORPUSCULAR HGB CONC 32 g/dl (33.0-37.0); MEAN PLATELET VOLUME 10.3 fl (7.4-10.4); MONO # 0.9 (0.1-0.6); MONO % 9.2 % (1.7-9.3); PLATELET COUNT 223 K/mm3 (130-400); RED BLOOD COUNT 4.03 M/mm3 (4.20-5.60); REDCELL DISTRIBUTION WIDTH-CV 13.8 % (11.5-14.5)
[2020-12-10 07:13] LABS: HEMOGLOBIN 11.7 g/dl (13.5-18.0)
[2020-12-10 07:19] LABS: CALCIUM 7.6 mg/dL (8.4-10.2); CREATININE, serum 0.37 (0.66-1.25)
[2020-12-10 07:20] LABS: POTASSIUM 2.9 mmol/L (3.4-5.0)
[2020-12-10 08:26] VITALS: BP 155/80; PULSE 102; TEMP 97.8
--- NOTE | 2020-12-10 11:54 | NUR ---
Assessment completed, patient lethargic this moring and took a while to arouse/ when awake he is oriented and able to answer questions/ follow simple commands appropriately, vital signs stable/afebrile, he was having some coughing/ issues with swallowing with his breakfast and so we stopped and are waiting to discuss with ST further, potassium 2.9 and hospitalist aware/ replacing per protocol, stage II pressure ulcer to sacral/coccyx/ drssing applied, PT/OT assisted patient to side of the bed where he was able to sit for a minute or two but otherwise is very weak and bed bound, heart irregular/ Afib on tele but rate controlled in 80's, PO cardizem given, discussed plan of care with hospitalist as well as his over the phone
[2020-12-10 12:22] VITALS: BP 155/70; PULSE 94; TEMP 98.9
--- NOTE | 2020-12-10 13:22 | NUR ---
First visit from the pediatric rn. prayed with patient. No other needs right now.
[2020-12-10 16:34] VITALS: BP 133/56; PULSE 83; TEMP 97.8
--- NOTE | 2020-12-10 19:02 | NUR ---
Received report from Trace. Patient awake in bed. He was asking for strawberry ice cream. With ongoing Zosyn.
[2020-12-10 20:03] VITALS: BP 148/55; PULSE 86; TEMP 98.3
--- NOTE | 2020-12-10 21:04 | NUR ---
Patient's potassium on recheck is 3.2. Potassium protocol initiated. All drinks were mixed with nectar thick. He denies pain. His lungs are clear. Repositioned patient.
[2020-12-11] VITALS: BP 102/40; PULSE 80; TEMP 97.4
[2020-12-11 05:28] VITALS: BP 144/62; PULSE 82; TEMP 98.6
--- NOTE | 2020-12-11 06:19 | NUR ---
Patient had uneventful night. No bowel movement noted. Harry catheter draining good urine output. He has been drinking a lot of fluids which was mixed with nectar thick. He denies pain.
[2020-12-11 06:45] LABS: BASO % 0.3 % (0.0-2.0); EOS # 0.3 (0.0-0.7); EOS % 3.6 % (0-4.0); GRAN # 4.9 (1.4-6.5); GRAN % 67.9 % (42.2-75.2); HEMOGLOBIN 11.3 g/dl (13.5-18.0); LYMPH # 1.2 (1.2-3.4); LYMPH % 16.1 % (20.0-51.0); MEAN CELL VOLUME 91 fl (80.0-100.0); MEAN CORPUSCULAR HEMOGLOBIN 29 pg (27.0-31.0); MEAN CORPUSCULAR HGB CONC 32 g/dl (33.0-37.0); MEAN PLATELET VOLUME 10.4 fl (7.4-10.4); MONO # 0.8 (0.1-0.6); MONO % 11.5 % (1.7-9.3); PLATELET COUNT 246 K/mm3 (130-400); RED BLOOD COUNT 3.84 M/mm3 (4.20-5.60); REDCELL DISTRIBUTION WIDTH-CV 13.8 % (11.5-14.5)
[2020-12-11 06:52] LABS: HEMATOCRIT 35.1 % (42.0-52.0)
[2020-12-11 07:02] LABS: CALCIUM 7.6 mg/dL (8.4-10.2); CREATININE, serum 0.54 (0.66-1.25); POTASSIUM 3.7 mmol/L (3.4-5.0)
[2020-12-11 08:29] VITALS: BP 141/82; BP 141/88; PULSE 76; PULSE 85; TEMP 98.4; TEMP 98.5
[2020-12-11 12:14] VITALS: BP 140/80; PULSE 84; TEMP 98.5
[2020-12-11] MEDS ORDERED: [UNRECOGNIZED DRUG - OTHER] MC (14:21)
[2020-12-11] MEDS ORDERED: LASIX 20MG TABL20 MG PO (14:23)
[2020-12-11] MEDS ORDERED: CIPRO 500MG TA500 MG PO (14:24)
[2020-12-11] MEDS ORDERED: CARDIZEM CD360 MG PO (14:25)
[2020-12-11] MEDS ORDERED: EFFER-K20 MEQ PO (14:27)
--- NOTE | 2020-12-11 16:33 | NUR ---
Corporate Communications Intern attended clinical rounds with the team and patient to discharge home today with continued services through [facility]. HEATHER contacted Hui at [facility] and set up transportation for 1630. [facility] will coordinate to have aides meet patient at home to provide assist into the home. HEATHER contacted patient's to provide transport time. Jess would like a call from Hospitalist. HEATHER contacted SABINE Goodwin who advised they would call. HEATHER faxed discharge orders to [facility]. Discharge Plan: Home with [facility] and Private Duty services.
--- NOTE | 2020-12-11 18:35 | NUR ---
patient discharging home, I discussed plan of care and d/c orders with them, instructed to follow up with PCP and Cardiology as scheduled, discussed all neew meds and med changes, script sent to [facility] pharmacy for them , IV sites removed, tele ermoved, present at time of discharge, [facility] home health set and and is providing transportation, acevedo chronic and left in place upon discharge/ cath changed in ER on 12/08/20
== END 2020-12-11 18:38 | disposition home health service (06) | DRG 698 ==
LOC: COL.ER 15:18 → ICU 17:53 → MEDICAL 12-09 17:39
PROVIDERS: Physician Assistant; ADMIT Hospitalist
DX: T83.511A Infection and inflammatory reaction due to indwelling urethral catheter, initial encounter (principal); R65.20 Severe sepsis without septic shock; I48.20 Chronic atrial fibrillation, unspecified; E87.2 Acidosis; B37.49 Other urogenital candidiasis; I69.954 Hemiplegia and hemiparesis following unspecified cerebrovascular disease affecting left non-dominant side; Y84.6 Urinary catheterization as the cause of abnormal reaction of the patient, or of later complication, without mention of misadventure at the time of the procedure; E87.6 Hypokalemia; E83.42 Hypomagnesemia; R79.89 Other specified abnormal findings of blood chemistry; I27.20 Pulmonary hypertension, unspecified; R15.9 Full incontinence of feces; I72.8 Aneurysm of other specified arteries; I69.992 Facial weakness following unspecified cerebrovascular disease; Z66 Do not resuscitate; R60.0 Localized edema; T50.3X5A Adverse effect of electrolytic, caloric and water-balance agents, initial encounter; T17.920A Food in respiratory tract, part unspecified causing asphyxiation, initial encounter; Z86.718 Personal history of other venous thrombosis and embolism; Z86.711 Personal history of pulmonary embolism; I10 Essential (primary) hypertension; E78.5 Hyperlipidemia, unspecified; E11.69 Type 2 diabetes mellitus with other specified complication; L40.9 Psoriasis, unspecified; N40.0 Benign prostatic hyperplasia without lower urinary tract symptoms; F32.9 Major depressive disorder, single episode, unspecified; K59.00 Constipation, unspecified; I65.23 Occlusion and stenosis of bilateral carotid arteries; R19.7 Diarrhea, unspecified; Z87.442 Personal history of urinary calculi; Z91.81 History of falling; Z87.891 Personal history of nicotine dependence; M21.372 Foot drop, left foot; Z79.02 Long term (current) use of antithrombotics/antiplatelets; Z79.82 Long term (current) use of aspirin; Z74.01 Bed confinement status
CPT/HCPCS: 99223-AI; 99232-AI; 99233-AI; J0744; J1450; J1940; J2543; J3370; J3475; J7030; J7050

== ENCOUNTER 2020-12-22 12:23 | Emergency (ER) | payer MEDICARE, OTHER ==
[~2020-12-22] VITALS: Ht 180.3 cm; Wt 90.9 kg
[~2020-12-22 12:23] MED LIST changes: +ALMACONE 360 M360 ML PO; +BACTROBAN 22GM22 GM NAS; +CARDIZEM CD360 MG PO; +CIPRO 500MG TA500 MG PO; +COSENTYX (150 MG/1 M SQ; +DESITIN MULTI-P99 G1 TP; +EFFER-K20 MEQ PO; +HYDROCORTISO28.35 GM TOP; +LASIX 20MG TABL20 MG PO; +MILK OF MA400 MG/52; +PROBIOTIC ACID1 EAC3 PO; +TEMOVATE0.052 TOP; +ZYRTEC 10MG10 MG PO; +[UNRECOGNIZED DRUG - OTHER] MC
[2020-12-22 12:25] VITALS: TEMP 97.9
[2020-12-22 13:13] LABS: BASO # 0.1 (0.0-0.2); BASO % 0.5 % (0.0-2.0); EOS # 0.1 (0.0-0.7); EOS % 0.6 % (0-4.0); GRAN # 8.1 (1.4-6.5); GRAN % 78.4 % (42.2-75.2); HEMATOCRIT 38.7 % (42.0-52.0); HEMOGLOBIN 12.3 g/dl (13.5-18.0); LYMPH # 1.3 (1.2-3.4); LYMPH % 12.8 % (20.0-51.0); MEAN CELL VOLUME 92 fl (80.0-100.0); MEAN CORPUSCULAR HEMOGLOBIN 29 pg (27.0-31.0); MEAN CORPUSCULAR HGB CONC 32 g/dl (33.0-37.0); MEAN PLATELET VOLUME 9.6 fl (7.4-10.4); MONO # 0.7 (0.1-0.6); MONO % 6.4 % (1.7-9.3); PLATELET COUNT 473 K/mm3 (130-400); RED BLOOD COUNT 4.22 M/mm3 (4.20-5.60); REDCELL DISTRIBUTION WIDTH-CV 13.1 % (11.5-14.5)
[2020-12-22 13:15] LABS: ALBUMIN 3.3 gm/dL (3.5-5.0); BILIRUBIN,TOTAL 0.2 mg/dL (0.0-1.0); CALCIUM 8.5 mg/dL (8.4-10.2); CREATININE, serum 0.85 (0.66-1.25); POTASSIUM 3.5 mmol/L (3.4-5.0); TOTAL PROTEIN 7.9 gm/dL (6.4-8.2)
[2020-12-22 13:23] LABS: COLLECTION METHOD CATHETER
[2020-12-22 13:35] LABS: MUCOUS Present /lpf; PH 5 (5-8); SQUAMOUS EPITHELIAL 0-2 /hpf; URINE APPEARANCE Hazy; URINE BACTERIA Rare /hpf; URINE BILIRUBIN Negative (NEGATIVE); URINE BLOOD 2+ (NEGATIVE); URINE COLOR Yellow; URINE GLUCOSE Negative (NEGATIVE); URINE KETONE Negative (NEGATIVE); URINE LEUKOCYTE ESTERASE 1+ (NEGATIVE); URINE NITRATE Negative (NEGATIVE); URINE PROTEIN(semi-quant) Negative (NEGATIVE); URINE RBC 20-50 /hpf; URINE UROBILINOGEN Negative (NEGATIVE)
--- NOTE | 2020-12-22 15:27 | NUR ---
[employer] Director consulted from the ED for the patient due to needing assistance with transportation home. The patient is known to this SW. [facility] assist with transports for this patient. HEATHER contacted Hui with [facility] and she states they can provide transport at approximately 1550. HEATHER collaborted the above information with the patient's nurse.
[2020-12-22 15:54] VITALS: BP 108/69; PULSE 79
== END 2020-12-22 16:02 | disposition home or self-care (01) ==
LOC: COL.ER 12:23
PROVIDERS: Physician Assistant
DX: N39.0 Urinary tract infection, site not specified (principal); R33.9 Retention of urine, unspecified; M24.542 Contracture, left hand; L40.9 Psoriasis, unspecified; I48.91 Unspecified atrial fibrillation; I10 Essential (primary) hypertension; E11.9 Type 2 diabetes mellitus without complications; I25.10 Atherosclerotic heart disease of native coronary artery without angina pectoris; E78.5 Hyperlipidemia, unspecified; Z87.442 Personal history of urinary calculi; Z88.1 Allergy status to other antibiotic agents; Z87.891 Personal history of nicotine dependence; Z79.82 Long term (current) use of aspirin; Z79.02 Long term (current) use of antithrombotics/antiplatelets; Z79.899 Other long term (current) drug therapy
CPT/HCPCS: A4314; J0692; J7030

== ENCOUNTER 2021-02-09 14:12 | Inpatient (IN) | payer MEDICARE, OTHER ==
[~2021-02-09] VITALS: Ht 180.3 cm; Wt 95.5 kg
[2021-02-09 14:40] LABS: BASO # 0.1 (0.0-0.2); BASO % 0.6 % (0.0-2.0); EOS # 0.5 (0.0-0.7); EOS % 4.8 % (0-4.0); GRAN # 7.4 (1.4-6.5); HEMOGLOBIN 11.4 g/dl (13.5-18.0); LYMPH # 1.8 (1.2-3.4); LYMPH % 16.9 % (20.0-51.0); MEAN CELL VOLUME 89 fl (80.0-100.0); MEAN CORPUSCULAR HEMOGLOBIN 28 pg (27.0-31.0); MEAN CORPUSCULAR HGB CONC 32 g/dl (33.0-37.0); MEAN PLATELET VOLUME 9.9 fl (7.4-10.4); MONO # 0.8 (0.1-0.6); MONO % 7.6 % (1.7-9.3); PLATELET COUNT 440 K/mm3 (130-400); RED BLOOD COUNT 4.02 M/mm3 (4.20-5.60); REDCELL DISTRIBUTION WIDTH-CV 12.8 % (11.5-14.5)
[2021-02-09 14:42] LABS: HEMATOCRIT 35.6 % (42.0-52.0)
[2021-02-09 14:53] LABS: ALBUMIN 2.8 gm/dL (3.5-5.0); BILIRUBIN,TOTAL 0.3 mg/dL (0.0-1.0); CALCIUM 8.6 mg/dL (8.4-10.2); CREATININE, serum 0.49 (0.66-1.25); POTASSIUM 3.9 mmol/L (3.4-5.0); TOTAL PROTEIN 6.8 gm/dL (6.4-8.2)
[2021-02-09 15:28] LABS: C-REACTIVE PROTEIN 6.3 mg/dL (0.0-0.9)
[2021-02-09 15:30] LABS: MUCOUS Present /lpf; PH 6 (5-8); SQUAMOUS EPITHELIAL None Seen /hpf; URINE APPEARANCE Hazy; URINE BACTERIA Occasional /hpf; URINE BILIRUBIN Negative (NEGATIVE); URINE BLOOD Negative (NEGATIVE); URINE COLOR Yellow; URINE GLUCOSE Negative (NEGATIVE); URINE KETONE Negative (NEGATIVE); URINE LEUKOCYTE ESTERASE 2+ (NEGATIVE); URINE NITRATE Negative (NEGATIVE); URINE PROTEIN(semi-quant) Negative (NEGATIVE)
[2021-02-09 16:07] LABS: COLLECTION METHOD IN
--- NOTE | 2021-02-09 16:31 | NUR ---
HEATHER responded to consult. The patient's RN notified HEATHER that the patient was brought into the ED after [facility] home health called EMS. EMS reports that the patient was saturated and had not been changed in 48 hours, since home health was last in. The RN reports that the patient has multiple sores on his buttox. HEATHER contacted David at [facility] to follow up on services that they provide. David reports that the patient's social situation is not great. The patient lives at home with his , Jess (ph#[phone]). David reports that Jess does not do much hands on care. He reports that they have offered to increase services, but those would be private pay, so Jess has declined them. He reports that they have also discussed a higher level of care and having their perinatal social worker come out to talk to them to help with finances. Jess declined. HEATHER attempted to contact Jess to discuss the above and placement. HEATHER left her a voicemail. HEATHER contacted and faxed a referral to Abbie at [facility]. Awaiting screen. HEATHER updated the patient's RN on the above.
[2021-02-09] MEDS ORDERED: DOXYCYCLINE 10100 MG PO (17:13)
[2021-02-09] MEDS ORDERED: K-TAB20 PO (17:14)
[2021-02-09] MEDS ORDERED: TRIAM OI 0.1 80 TOP (17:20)
[2021-02-09 20:07] VITALS: BP 143/73; PULSE 51; TEMP 98.7
--- NOTE | 2021-02-09 20:17 | NUR ---
PT TRANSFERRED TO MEDICAL FLOOR VIA ED STAFF AT 1999, O2 ROOM AIR, VSS, PT A/OX2, RESPONDING TO MINOR COMMANDS AND NURSES QUESTIONS WITH DELAY. NURSE WILL CONDUCT ASSESMENT. BED LOW. CALL LIGHT WITHIN REACH.
[2021-02-10] VITALS (7 sets, daily range): BP systolic 115–145; BP diastolic 68–97; PULSE 85–109; TEMP 97.6–98.7
--- NOTE | 2021-02-10 03:04 | NUR ---
ER NURSE DROPS OFF MEDICATION LIST TO NURSE ON MEDICAL FLOOR AT 0200. NURSE WILL COMPLETE MEDICATION RECONCILATION.
[2021-02-10] MEDS ORDERED: AQUAPHOR HEALING41% TP (03:25)
[2021-02-10] MEDS ORDERED: DEBROX OT (03:26)
[2021-02-10] MEDS ORDERED: AZO URINARY PAI95 MG PO (03:29)
[2021-02-10] MEDS ORDERED: FLOMAX 0.40.4 MG/CAP PO (03:54)
[2021-02-10] MEDS ORDERED: ALMACONE 360 M360 ML PO (03:58)
--- NOTE | 2021-02-10 05:51 | NUR ---
PT REMAINED AWAKE THROUGHOUT THE ENTIRE NIGHT, A/O, ABLE TO FOLLOW SIMPLE COMMANDS AND RELAY SIMPLE COMMANDS, VERBALLY RESPONDS WITH LONG DELAY. PT DENIES PAIN, SOB, N/V/D. VSS, MCELROY PATENT AND FREE OF OBSTRUCTION. BED LOW. CALL LIGHT WITHIN REACH.
--- NOTE | 2021-02-10 10:36 | NUR ---
First visit from the abnormal psychology teacher. No needs right now.
--- NOTE | 2021-02-10 12:29 | NUR ---
Pt in bed upon entry, no C/O pain at this time, shift assessments complete, left Pt call light in nreach, bed in lowest position alarm on.
--- NOTE | 2021-02-10 14:39 | NUR ---
Pt discharged to home, discussed discharge information with Pt. Pt escorted to entrance by PCT.
--- NOTE | 2021-02-10 15:05 | NUR ---
Underwriting Specialist contacted patient's , Jess to discuss discharge planning. Jess advised that patient lives at home with her and has private duty services through [facility] that come out once a day for an hour to do a bed bath and wound care. Patient sees Dr. Yo for primary care and obtains medications from either [facility] or [facility]. Patient has a hospital bed at home and is bed bound. Jess would like for patient to go to [facility] (skilled upon discharge). HEATHER reviewed recommendation for [facility], however Jess is not interested in LTC and advised patient would not be agreeable. Jess states her plan after [facility] would be to increase care in the home. HEATHER contacted Abbie at [facility] and faxed updates. Abbie advised the team at [facility] feels patient needs LTC and that they have made multiple attempts to discuss this with Jess, as well as offered financial counseling for Medicaid. Abbie will have team review updates and then update HEATHER. Discharge Plan: [facility] SNF. Patient's declines LTC at this time and would plan to increase care at home upon discharge from SNF.
--- NOTE | 2021-02-10 15:10 | NUR ---
Abbie, at [facility], reports that they have to decline the patient. Abbie reports that the patient really does not have rehab potential and the patient requires long-term care. Abbie reports that the patient's , Jess, is not receptive to that level of care and working with their finance team. HEATHER contacted and faxed a referral to [facility]. Awaiting screens.
--- NOTE | 2021-02-10 15:58 | NUR ---
SW collaborated with the patient clinical team on having a palliative care consult to discuss goals of care with the patient's . HEATHER notified palliative care nurse, Ca.
--- NOTE | 2021-02-10 19:06 | NUR ---
Received report from Angel. Patient currently eating his dinner.
--- NOTE | 2021-02-10 21:10 | NUR ---
Repositioned patient in bed. Placed pillow on his left side. Patient has redness and excoriation on his back, inner thighs and buttocks. He is alert but not fully oriented. He is hard of hearing. With acevedo catheter draining clear, yellow urine. His left arm/hand is contracted. He denies pain. Bed alarm on.
[2021-02-11 00:42] VITALS: BP 128/70; PULSE 91; TEMP 98.7
[2021-02-11 04:00] VITALS: BP 122/71; PULSE 106; TEMP 98.6
--- NOTE | 2021-02-11 06:18 | NUR ---
Patient was on and off asleep. He denies pain. Patient more alert and talking. Pads placed on siderails. Bed alarm on.
[2021-02-11 06:48] LABS: HEMOGLOBIN 11.4 g/dl (13.5-18.0); MEAN CELL VOLUME 91 fl (80.0-100.0); MEAN CORPUSCULAR HEMOGLOBIN 29 pg (27.0-31.0); MEAN CORPUSCULAR HGB CONC 32 g/dl (33.0-37.0); PLATELET COUNT 435 K/mm3 (130-400); RED BLOOD COUNT 3.88 M/mm3 (4.20-5.60); REDCELL DISTRIBUTION WIDTH-CV 12.9 % (11.5-14.5)
[2021-02-11 06:50] LABS: HEMATOCRIT 35.2 % (42.0-52.0)
[2021-02-11 07:05] LABS: CALCIUM 8.6 mg/dL (8.4-10.2); CREATININE, serum 0.57 (0.66-1.25); POTASSIUM 4.1 mmol/L (3.4-5.0)
[2021-02-11 07:57] LABS: BAND 3 % (0-10); BASOPHIL 1 % (0-2); EOSINOPHIL 5 % (0-4); LYMPHOCYTE 9 % (20.0-51.0); METAMYELOCYTE 3 % (0-0); NEUTROPHILS 75 % (42.0-75.2)
[2021-02-11 07:58] LABS: PLATELET ESTIMATE NORMAL (NORMAL)
[2021-02-11 08:00] VITALS: BP 158/68; PULSE 87; TEMP 97.9
--- NOTE | 2021-02-11 10:41 | NUR ---
External Grinder Tender contacted patient's , Jess to notify her that [facility] cannot accept. SW advised that referrals were sent to [facility] [place] and [facility]. Jess was open to placement at either of these facilities and if they cannot accept, returning home with increased care at home. HEATHER was contacted by Dirk at [facility] who advised they cannot meet patient's needs. Discharge Plan: Awaiting screen at [facility]. Patient's also considering patient returning home with increased private duty services.
--- NOTE | 2021-02-11 11:14 | NUR ---
ASSESSMENT COMPLETED, SEE NOTE. PT ALERT, ORIENTED TO PERSON AND PLACE BUT OTHERWISE CONFUSED (BELIEVED IT WAS 1992). RESTING IN BED AT THIS TIME WITH MCELROY IN PLACE, TOLERATING WELL. NEW IV ACCESS STARTED IN RFA, ACCESS IN RIGHT HAND REMOVED IT WAS LEAKING. PT ABLE TO SWALLOW PILLS ONE BY ONE SLOWLY WITH STANDBY ASSISTANCE REQUIRED. SUBSTANTIAL CONTRATURES PRESENT IN LEFT HAND WHICH PATIENT REPORTS TO BE A RESULT OF A PREVIOUS R SIDED STROKE. PT ASSISTED WITH BREAKFAST TRAY SET UP AND THIS TIME. BED IN LOW POSITION AND CALL TELLEZ IN REACH.
[2021-02-11 12:17] VITALS: BP 134/75; PULSE 102; TEMP 98
--- NOTE | 2021-02-11 12:29 | NUR ---
[facility] PROVIDED, PT TURNED TO BACK AT THIS TIME. CURRENTLY REFUSING SCD'S STATES HE WILL ALLOW THEM TO BE PLACED LATER. ROLLED UP TOWEL PLACED IN LEFT HAND TO ASSIT WITH DISCOMFORT R/T CONTRACTURE. PT ASSISTED TO SIT UP AND WITH LUNCH TRAY SET UP.
--- NOTE | 2021-02-11 15:58 | NUR ---
PT TURNED AND REPOSITIONED, PADS CHANGED AND PRESSURE REDUCTION MATTRESS PROVIDED FOR PATIENT. PATIENT TRANSFERED TO NEW BED WITHOUT ISSUE. SCDS APPLIED AFTER ADDITIONAL PATIENT EDUCATION PROVIDED. PT RESTING IN BED COMFORTABLY AT THIS TIME. BACK, GROIN, BUTTOCKS CONTINUES TO BE EXCORIATED. DESITIN CREAM APPLIED PRN. PT EDUCATION ALSO PROVIDED REF SCRATCHING AREAS THEY ARE VERY EXCORIATED. CALL TELLEZ IN REACH, BED IN LOW POSITION.
--- NOTE | 2021-02-11 17:45 | NUR ---
Pt sitting up in bed eating lunch
[2021-02-11 17:46] VITALS: BP 120/76; PULSE 77; TEMP 98.3
--- NOTE | 2021-02-11 19:12 | NUR ---
Received report from Marci. Patient eating his dinner.
[2021-02-11 20:21] VITALS: BP 149/56; PULSE 88; TEMP 98.5
[2021-02-12 00:31] VITALS: BP 131/65; PULSE 92; TEMP 98.3
--- NOTE | 2021-02-12 00:51 | NUR ---
Repositioned patient. Placed andrea hose and heel pillow. He denies pain.
[2021-02-12 04:27] VITALS: BP 142/72; PULSE 96; TEMP 98.4
--- NOTE | 2021-02-12 06:09 | NUR ---
Applied Desitin ointment on his groin. Repositioned patient. Placed pillow on his left side.
[2021-02-12 08:09] VITALS: BP 133/76; PULSE 80; TEMP 97.3
--- NOTE | 2021-02-12 08:47 | NUR ---
Assessment completed, see additional note. Pt sitting up in bed eating breakfast. Pt able to self feed and is tolerating well. No complaints of pain or discomfort, states that he did not sleep well overnight due to being restless. Pt continues to have red, excoriated and weeping areas to the groin, upper thighs, back and under the neck. Medication to be applied as needed. Pt assisted to take morning PO medication in pudding as he has a difficult time swallowing full pills. All medication taken with minimal coughing. Pt prompted to tuck chin and swallow hard which seems to assist in this process. 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 Contractures present to db DUNCAN in room and pt prompted to place in hand to assit with worsening of this process. Pt on specialty mattress for pressure reduction, will turn and reposition. Bed in low position, call hines in reach. patient as needed.
[2021-02-12 10:53] VITALS: BP 133/76; PULSE 80; TEMP 97.3
--- NOTE | 2021-02-12 10:59 | NUR ---
SABINE COOPER GAVE VERBAL ORDER TO CHANGE PT CHRONIC MCELROY DUE TO UTI. ORDER PLACED.
[2021-02-12 11:28] VITALS: BP 116/69; PULSE 86; TEMP 98.3
--- NOTE | 2021-02-12 11:34 | NUR ---
PT BATHED, HAIR WASHED, MCELROY CHANGED PER ORDER. PT TOLERATED WELL, TIP INTACT. MCELROY REINSERTED PER ORDER AND URINE RETURN OBSERVED. CURRENTLY RESTING IN BED, BED IN LOW POSITION, CALL TELLEZ IN REACH.
--- NOTE | 2021-02-12 14:02 | NUR ---
Report called to Pat at [facility]. Pt currently awaiting transport.
--- NOTE | 2021-02-12 14:45 | NUR ---
Pt transferred to wheelchair, transported by [facility] staff for discharge to [facility]. Report called to Pat at [facility].
--- NOTE | 2021-02-12 16:43 | NUR ---
Brand Engineer spoke with Chase at [facility] who advised they can accept patient for a skilled stay. SW attended clinical rounds with the team and patient is ready for discharge today. Hospitalist advised patient he would discharge to [facility] skilled and patient is in agreement. HEATHER contacted patient's , Jess who is in agreement with discharge to [facility] skilled. HEATHER set transport time for 1400 and provided transport time to RN and Jess. HEATHER faxed discharge orders and negative COVID results to Chase at [facility]. HEATHER contacted Hui at [facility] to notify her of patient discharge as patient receives private duty services from them. Discharge: [facility] Skilled
== END 2021-02-12 14:35 | DRG 698 ==
LOC: COL.ER 14:12 → MEDICAL 19:19
PROVIDERS: Family Medicine; Physician Assistant; ADMIT Internal Medicine
DX: T83.511A Infection and inflammatory reaction due to indwelling urethral catheter, initial encounter (principal); G93.41 Metabolic encephalopathy; I48.20 Chronic atrial fibrillation, unspecified; I69.354 Hemiplegia and hemiparesis following cerebral infarction affecting left non-dominant side; N39.0 Urinary tract infection, site not specified; B95.2 Enterococcus as the cause of diseases classified elsewhere; I95.1 Orthostatic hypotension; I27.20 Pulmonary hypertension, unspecified; E11.8 Type 2 diabetes mellitus with unspecified complications; E78.5 Hyperlipidemia, unspecified; R55 Syncope and collapse; I10 Essential (primary) hypertension; L40.9 Psoriasis, unspecified; F32.9 Major depressive disorder, single episode, unspecified; N40.0 Benign prostatic hyperplasia without lower urinary tract symptoms; K59.00 Constipation, unspecified; L89.151 Pressure ulcer of sacral region, stage 1; Z86.718 Personal history of other venous thrombosis and embolism; Z86.711 Personal history of pulmonary embolism; Z79.82 Long term (current) use of aspirin; Z79.02 Long term (current) use of antithrombotics/antiplatelets; Z87.891 Personal history of nicotine dependence; Z20.822 Contact with and (suspected) exposure to COVID-19
CPT/HCPCS: 99222-AI; 99232-AI; 99239; J0696; J1650; J1815; J2405; J7120

== ENCOUNTER 2021-03-11 00:48 | Inpatient (IN) | payer MEDICARE, OTHER ==
[~2021-03-11] VITALS: Ht 182.9 cm; Wt 90.9 kg
[~2021-03-11 00:48] MED LIST changes: +AQUAPHOR HEALING41% TP; +AZO URINARY PAI95 MG PO; +DOXYCYCLINE 10100 MG PO; +K-TAB20 PO; +TRIAM OI 0.1 80 TOP
[2021-03-11 01:51] LABS: BASO % 0.1 % (0.0-2.0); GRAN % 81.5 % (42.2-75.2); HEMOGLOBIN 17.3 g/dl (13.5-18.0); LYMPH # 1.7 (1.2-3.4); LYMPH % 11.2 % (20.0-51.0); MEAN CELL VOLUME 89 fl (80.0-100.0); MEAN CORPUSCULAR HEMOGLOBIN 29 pg (27.0-31.0); MEAN CORPUSCULAR HGB CONC 33 g/dl (33.0-37.0); MEAN PLATELET VOLUME 10.9 fl (7.4-10.4); MONO # 0.9 (0.1-0.6); MONO % 6.4 % (1.7-9.3); PLATELET COUNT 348 K/mm3 (130-400); RED BLOOD COUNT 5.96 M/mm3 (4.20-5.60); REDCELL DISTRIBUTION WIDTH-CV 14.4 % (11.5-14.5)
[2021-03-11 02:06] LABS: ALBUMIN 4.1 gm/dL (3.5-5.0); BILIRUBIN,TOTAL 0.7 mg/dL (0.0-1.0); CALCIUM 9.9 mg/dL (8.4-10.2); CREATININE, serum 0.8 (0.66-1.25); POTASSIUM 4.4 mmol/L (3.4-5.0); TOTAL PROTEIN 8.5 gm/dL (6.4-8.2)
[2021-03-11 02:50] LABS: MUCOUS Present /lpf; PH 5 (5-8); URINE APPEARANCE Turbid; URINE BACTERIA Moderate /hpf; URINE BILIRUBIN Negative (NEGATIVE); URINE BLOOD 2+ (NEGATIVE); URINE COLOR Amber; URINE GLUCOSE Negative (NEGATIVE); URINE KETONE Negative (NEGATIVE); URINE LEUKOCYTE ESTERASE 2+ (NEGATIVE); URINE NITRATE Negative (NEGATIVE); URINE PROTEIN(semi-quant) 2+ (NEGATIVE); URINE RBC >50 /hpf; URINE UROBILINOGEN Negative (NEGATIVE)
--- NOTE | 2021-03-11 08:45 | NUR ---
PATIENT ADMITED INTO ROOM 344 FROM ER WITH UTI/SEPSIS. PATIENT IS NON-VERBAL WITH HX OF DEMENTIA. PATIENT CAME FROM [facility]. ER REPORTED TEMP OF 101.4 AND WAS GIVEN TYLENOL AROUND 0200, NO RE-CHECK DOCUMENTED. AFTER REPORT, TEMP RECHECK IN ER WAS 100.0 AND ANOTHER DOSE OF TYLENOL WAS ADMINISTERED. NOTED ELEVATED B/P OF 170/118 AND HR OF 104. PATIENT HAS EXTENSIVE CARDIAC HX INCLUDING A-FIB, CVA WITH LEFT SIDE CONTRACTED, HTN DVT AND PE. MED REC FROM [facility] ON CHART, RXM NOT COMPLETED. TELE INPLACE AND EKG ORDERED ON ADMIT TO FLOOR. HOSPITALIST AT BEDSIDE, SEE ORDERS FOR IV ANTIBIOTICS. IV FLUIDS INFUSING VIA PUMP INTO RIGHT FORARM IV. PATIENT ALSO HAS ELEVATED LACTIC ACID OF 1.6 WHICH IS DOWN FROM 2.4 ON ARRIVAL TO ER. CHRONIC MCELROY TO DD WITH MOD AMOUNT OF HAZY YELLOW COLORED URINE NOTED. NOTED SEVERAL SKIN ISSUES INCLUDING THREE COCCYX ULCERS, SEE SHIFT ASSESSMENT, MEPILEX DRESSINGS APPLIED. BLE HEELS ALSO RED, APPLIED HEEL PROTECTORS AND SCD'S TO BLE. PATIENT IS A MAX 2 ASSIST. PT CONSULTED. [facility] SOFT DIET ORDERED. MEDS CRUSHED AND GIVEN IN APPLESAUCE. BS WAS 156. HEAD TO TOE ASSESSMENT COMPLETE. PATIENT IS HIGH RISK FOR FALLS & ASPIRATION. HOB ELEVATED AND BED ALARM ON. CALL LIGHT IN REACH.
[2021-03-11 08:48] VITALS: BP 133/74; PULSE 90; TEMP 98.6
--- NOTE | 2021-03-11 12:00 | NUR ---
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 PATIENT PLACED IN CONTACT PRECAUTIONS.
[2021-03-11 12:47] VITALS: BP 162/87; PULSE 89; TEMP 98.7
[2021-03-11 18:03] VITALS: BP 150/75; PULSE 93; TEMP 97.4
[2021-03-11 19:18] VITALS: BP 132/68; PULSE 107; TEMP 97.9
--- NOTE | 2021-03-11 21:00 | NUR ---
PT NON VERBAL, DOES NOD HEAD YES/NO APPROPRIATELY. TAKES HS MEDS IN PUDDING WITHOUT PROBLEM. OINTMENTS APPLIED PER ORDERS. NOTED EXCORIATED GROIN AND REDDENED AND DRY BACK. PT REPOSITIONED TO SIDE. CONTRACTURED LEFT HAND NOTED. IVF TO RT FOREARM, NO REDNESS OR SWELLING.
[2021-03-12] VITALS (7 sets, daily range): BP systolic 130–153; BP diastolic 60–89; PULSE 69–87; TEMP 97.3–98.3
--- NOTE | 2021-03-12 04:00 | NUR ---
PT AWAKE, IS ABLE TO COMMUNICATE VERBALLY. ORIENTED X2. REPORTS WANTING SOMETHING TO DRINK, NECTAR THICK JUICE GIVEN.
[2021-03-12 06:25] LABS: BASO % 0.1 % (0.0-2.0); EOS % 0.3 % (0-4.0); GRAN # 8.7 (1.4-6.5); GRAN % 82.4 % (42.2-75.2); HEMATOCRIT 40.6 % (42.0-52.0); LYMPH # 1.2 (1.2-3.4); LYMPH % 11.4 % (20.0-51.0); MEAN CELL VOLUME 91 fl (80.0-100.0); MEAN CORPUSCULAR HGB CONC 31 g/dl (33.0-37.0); MEAN PLATELET VOLUME 11.2 fl (7.4-10.4); MONO # 0.5 (0.1-0.6); MONO % 4.9 % (1.7-9.3); RED BLOOD COUNT 4.46 M/mm3 (4.20-5.60); REDCELL DISTRIBUTION WIDTH-CV 13.8 % (11.5-14.5)
[2021-03-12 06:31] LABS: HEMOGLOBIN 12.7 g/dl (13.5-18.0); MEAN CORPUSCULAR HEMOGLOBIN 28 pg (27.0-31.0); PLATELET COUNT 204 K/mm3 (130-400)
[2021-03-12 06:33] LABS: CALCIUM 8.3 mg/dL (8.4-10.2); CREATININE, serum 0.4 (0.66-1.25); POTASSIUM 3.5 mmol/L (3.4-5.0)
--- NOTE | 2021-03-12 08:43 | NUR ---
(late entry 03/11) Biochemist contacted the patient's Jess to complete intake. The patient was at [facility] for SNF then transitioned to LTC. HEATHER confirmed this with Chase from [facility]. The patient's PCP is Dr. Trang Yo and patient receives medications from [facility] and [facility]. The patient has advanced directives in the EMR. Jess states that she does not want the patient to return to [facility] and go home with [facility] services as before. Jess states she talked with [facility] and they were ok to take the patient back for services. Jess reports that [facility] charges $257 a day and she states that it would be cheaper to do private duty services. The patient has advanced directives in the EMR and they designate Jess and Dhiraj Hernandez. On 03/11 HEATHER contacted Hui with [facility] to discuss the above. She reports she was going to talk to David to discuss the patient. On 03/12 HEATHER contacted Hui. Hui reports that Jess did not contact anyone at [facility]. She reports that they will not take the patient HEATHER contacted Margret RNJR with Dr. Yo's office and they confirm that the patient is not safe at home. Dr. Yo does not feel comfortable with the patient returning home. Margret reports that they have asked Jess to extend private duty hours and Jess refused. The patient is bedridden and needs more care. aMrgret reports that Jess cannot handle the patient's needs at home. The patient had many bed sores while at home and his condition was concerning to Dr. Yo which is why she does not want the patient to return home. Margret states that Dr. Yo will not sign home health orders for the patient. HEATHER attempted to contact Jess to discuss the discharge plan and the above information. HEATHER attempted to contact demetra Hearn message for both of them to contact this SW.
[2021-03-12 09:14] LABS: COLLECTION METHOD IN
--- NOTE | 2021-03-12 09:35 | NUR ---
The patient's Jess contacted this [employer] Aligner regarding discharge plan. HEATHER discussed the denial of services of home health and that Dr. Yo does not believe the patient is safe at home and will not sign home health orders. Jess was concerned about affording the $257 a day. Jess reports she has talked to the [facility] [employer] "about three times" to discuss Medicaid and he does not qualify. HEATHER discussed the safest discharge plan was back to [facility] since the patient is full care and she does not have the proper supports at home. She was in agreeance with going back to [facility]. But she was going to work on getting a new PCP. She also states that she has a ancient art curator. It was not clear as to why she is needing a laywer. Margret also reported that [facility] has discussed applying for Medicaid for the patient as well. HEATHER contacted Christine with [facility] and they can accept the patient at discharge. HEATHER discussed Medicaid for the patient. He confirms they have discussed this with Jess but have made no headway. *Discharge disposition: [facility]
[2021-03-13] VITALS (7 sets, daily range): BP systolic 111–147; BP diastolic 63–90; PULSE 65–80; TEMP 97.7–99.4
--- NOTE | 2021-03-13 05:11 | NUR ---
PATIENT ALERT COMMUNICATE IN A FEW WORDS. A+0X2, VSS. MCELROY TO GRAVITY WITH CLEAR YELLOW URINE. OITMENTS APPLIED ORDERED. PATIENT YELLING AT TIME. LUNG SOUNDS CONGESTED. TOLERATING MECHANICAL SOFT DIET. MEDS GIVEN CRUSHED WITH PUDDING. WILL CONTINUE TO MONITOR.
--- NOTE | 2021-03-13 14:52 | NUR ---
Respiratory Services Manager faxed updates to Chase at [facility].
--- NOTE | 2021-03-13 21:00 | NUR ---
PT IN BED. IS ORIENTED TO SELF. TAKES HS MEDS WITHOUT PROBLEM. SKIN CARE PROVIDED TO GROIN, BACK AND BUTTOCKS. MCELROY CHRONIC TO BSD, YELLOW URINE NOTED. MCELROY CARES GIVEN. HAS SL TO RIGHT FOREARM, FLUSHES WELL. BRUISING TO HANDS NOTED. LEFT HAND CONTRACTURED WITH LEFT SIDE WEAKNESS HX OF CVA. HEEL PROTECTORS ON. MEPILEX INTACT TO COCCYX. BED ALARM ON.
[2021-03-14 03:34] VITALS: BP 140/71; PULSE 72; TEMP 97.7
--- NOTE | 2021-03-14 04:08 | NUR ---
PT IN BED, MORE COMFORTABLE WITH GOWN OFF. TELEMETRY SHOWS AFIB. REPOSITIONED Q2HR. GOOD URINE OUTPUT FROM MCELROY.
[2021-03-14 08:33] VITALS: BP 129/39; PULSE 79; TEMP 97.3
--- NOTE | 2021-03-14 10:16 | NUR ---
AM MEDS GIVEN ORDERED, PT EATING BREAKFAST INDEPENDENTLY. PT RESPONDING APPROPRIATELY TO ASSESSMENTS QUESTIONS.
[2021-03-14 11:39] LABS: BASO % 0.1 % (0.0-2.0); EOS # 0.1 (0.0-0.7); EOS % 1.3 % (0-4.0); GRAN # 7.6 (1.4-6.5); GRAN % 79.1 % (42.2-75.2); HEMATOCRIT 42.6 % (42.0-52.0); HEMOGLOBIN 13.8 g/dl (13.5-18.0); LYMPH # 1.2 (1.2-3.4); LYMPH % 12.7 % (20.0-51.0); MEAN CELL VOLUME 90 fl (80.0-100.0); MEAN CORPUSCULAR HEMOGLOBIN 29 pg (27.0-31.0); MEAN CORPUSCULAR HGB CONC 32 g/dl (33.0-37.0); MEAN PLATELET VOLUME 11.3 fl (7.4-10.4); MONO # 0.6 (0.1-0.6); MONO % 5.8 % (1.7-9.3); PLATELET COUNT 219 K/mm3 (130-400); RED BLOOD COUNT 4.73 M/mm3 (4.20-5.60); REDCELL DISTRIBUTION WIDTH-CV 13.8 % (11.5-14.5)
[2021-03-14 11:47] LABS: CALCIUM 8.6 mg/dL (8.4-10.2); CREATININE, serum 0.53 (0.66-1.25); POTASSIUM 3.7 mmol/L (3.4-5.0)
[2021-03-14 12:22] VITALS: BP 150/97; PULSE 79; TEMP 98.7
[2021-03-14 15:34] VITALS: BP 132/77; PULSE 83; TEMP 98.3
--- NOTE | 2021-03-14 15:55 | NUR ---
ESCOBAR CARE, CATH CARE AND SKIN CARE PROVIDED. PT HAS BEEN TURNED SIDE TO SIDE DURING THIS SHIFT.
[2021-03-14 19:39] VITALS: BP 150/78; PULSE 69; TEMP 97.3
--- NOTE | 2021-03-14 21:00 | NUR ---
PT IN BED. IS ALERT X2. NOT SURE OF MONTH OR TIME OF DAY. HAS SL TO RIGHT FOREARM, FLUSHES WELL, IV ANTIBIOTIC INFUSING WITHOUT PROBLEM. TAKES HS MEDS WITH PUDDING. CONTRACTURED LEFT HAND AND STIFF LEFT LEG. PLACED LEFT FOOT IN HEEL BOOT HE DOESN'T MOVE IT OFF THE BED. MCELROY CATHETER IN PLACE, URINE YELLOW. GROIN REMAINS REDDENED. BACK AND BUTTOCKS REDDENED AND SCALY. MEPILEX INTACT TO COCCYX. INTERMITTENT YELLING NOTED, REORIENTED FREQUENTLY.
[2021-03-14 23:27] VITALS: BP 112/71; PULSE 75; TEMP 97.6
[2021-03-15 03:38] VITALS: BP 131/77; PULSE 73; TEMP 98.3
--- NOTE | 2021-03-15 04:00 | NUR ---
PT REPOSITIONED BY STAFF Q2HR. PT REFUSES SCDS AT THIS TIME.
[2021-03-15 08:10] LABS: HEMOGLOBIN 14.1 g/dl (13.5-18.0); MEAN CELL VOLUME 89 fl (80.0-100.0); MEAN CORPUSCULAR HEMOGLOBIN 29 pg (27.0-31.0); MEAN CORPUSCULAR HGB CONC 32 g/dl (33.0-37.0); MEAN PLATELET VOLUME 11.6 fl (7.4-10.4); PLATELET COUNT 234 K/mm3 (130-400); RED BLOOD COUNT 4.94 M/mm3 (4.20-5.60); REDCELL DISTRIBUTION WIDTH-CV 13.8 % (11.5-14.5)
[2021-03-15 08:27] LABS: CALCIUM 8.9 mg/dL (8.4-10.2); CREATININE, serum 0.5 (0.66-1.25)
[2021-03-15 12:00] VITALS: BP 136/81; PULSE 76
--- NOTE | 2021-03-15 13:09 | NUR ---
Geovanni faxed over updates on pt to Felice
[2021-03-15 16:00] VITALS: BP 134/81; PULSE 69; TEMP 98
--- NOTE | 2021-03-15 17:09 | NUR ---
CATH CARE AND PERSONAL HYGINE PROVIDED BY STAFF. PT CONTINUES TO CALL OUT THROUGH OUT SHIFT. NEEDS MET ARISED.
[2021-03-15 19:06] VITALS: BP 152/86; PULSE 86; TEMP 97.9
--- NOTE | 2021-03-15 21:36 | NUR ---
PT IN BED. IS ALERT X2. TAKES HS MEDS INCLUDING TYLENOL FOR LEG PAIN. SL TO RIGHT FOREARM, IV ANTIBIOTIC INFUSING WITHOUT PROBLEM. SEE ASSESSMENT FOR SKIN ISSUES. REFUSES SCDS.
[2021-03-16 00:17] VITALS: BP 148/87; PULSE 78; TEMP 97.4
--- NOTE | 2021-03-16 00:30 | NUR ---
PT INTERMITTENTLY YELLS OUT, USES CALL LIGHT WELL. MOSTLY LIKES SOMEONE IN THE ROOM. REORIENTED TO PLACE AND TIME.
--- NOTE | 2021-03-16 03:30 | NUR ---
IV ANTIBIOTIC CONNECTED, INFUSING TO RIGHT FOREARM WITHOUT PROBLEM. TAKING THICKENED LIQUIDS WITHOUT CHOKING.
[2021-03-16 03:55] VITALS: BP 143/69; PULSE 71; TEMP 97.2
--- NOTE | 2021-03-16 04:00 | NUR ---
ASKING FOR ICE, PROVIDED IN HIS DRINK AT BEDSIDE.
[2021-03-16 08:00] VITALS: BP 156/88; PULSE 69; TEMP 97.1
--- NOTE | 2021-03-16 09:25 | NUR ---
Pt resting in bed. Repositioned with PT/OT to supine position so that he can eat breakfast. New Mepilex dressing applied during this time as well as ointment to his back and groin. Pt did have a small incontinent bowel movement. Pills given with pudding which he did well with. No other needs, complaints verbalized. Pt eating breakfast at this time
[2021-03-16 11:26] VITALS: BP 147/83; PULSE 72; TEMP 97.5
[2021-03-16 12:52] VITALS: BP 147/83; PULSE 72; TEMP 97.5
--- NOTE | 2021-03-16 14:00 | NUR ---
Report called to [facility]
--- NOTE | 2021-03-17 09:47 | NUR ---
(late entry 03/16) The patient discharged back to [facility] for terminologist care on 03/16. SW contacted the patient's , Jess and she was in agreeance. SW faxed disharge orders. There are no additional needs.
== END 2021-03-16 13:30 | DRG 698 ==
LOC: COL.ER 00:48 → SURG 04:39
PROVIDERS: Personal Emergency Response Attendant; Physician Assistant; Student in an Organized Health Care Education/Training Program; ADMIT Internal Medicine
DX: T83.511A Infection and inflammatory reaction due to indwelling urethral catheter, initial encounter (principal); A41.81 Sepsis due to Enterococcus; I48.20 Chronic atrial fibrillation, unspecified; E87.0 Hyperosmolality and hypernatremia; I27.20 Pulmonary hypertension, unspecified; E78.5 Hyperlipidemia, unspecified; N40.0 Benign prostatic hyperplasia without lower urinary tract symptoms; F32.9 Major depressive disorder, single episode, unspecified; I10 Essential (primary) hypertension; L89.329 Pressure ulcer of left buttock, unspecified stage; E11.8 Type 2 diabetes mellitus with unspecified complications; L89.319 Pressure ulcer of right buttock, unspecified stage; L40.9 Psoriasis, unspecified; K59.00 Constipation, unspecified; F03.90 Unspecified dementia, unspecified severity, without behavioral disturbance, psychotic disturbance, mood disturbance, and anxiety; Z20.822 Contact with and (suspected) exposure to COVID-19; Z86.718 Personal history of other venous thrombosis and embolism; Z86.711 Personal history of pulmonary embolism; Z86.73 Personal history of transient ischemic attack (TIA), and cerebral infarction without residual deficits; Z79.02 Long term (current) use of antithrombotics/antiplatelets; Z79.82 Long term (current) use of aspirin; Z88.8 Allergy status to other drugs, medicaments and biological substances
CPT/HCPCS: OP; 99223-AI; 99232-AI; 99233-AI; 99239; G0378; J0692; J0696; J1450; J1815; J2543; J7030; J7120

== ENCOUNTER → 2021-05-06 | Outpatient (CLI) | payer MEDICARE, OTHER ==
[2021-05-06 09:21] LABS: COLLECTION METHOD CATHETER
[2021-05-06 10:09] LABS: MUCOUS Present /lpf; PH 6 (5-8); SQUAMOUS EPITHELIAL None Seen /hpf; URINE APPEARANCE Turbid; URINE BACTERIA Occasional /hpf; URINE BILIRUBIN Negative (NEGATIVE); URINE BLOOD Negative (NEGATIVE); URINE COLOR Yellow; URINE GLUCOSE Negative (NEGATIVE); URINE KETONE Negative (NEGATIVE); URINE LEUKOCYTE ESTERASE 2+ (NEGATIVE); URINE NITRATE Positive (NEGATIVE); URINE PROTEIN(semi-quant) 1+ (NEGATIVE); URINE UROBILINOGEN Negative (NEGATIVE)
== END ==
LOC: ZLAB.STJ 07:13
PROVIDERS: Internal Medicine
DX: N39.0 Urinary tract infection, site not specified (principal)

== ENCOUNTER → 2021-05-22 | Outpatient (CLI) | payer MEDICARE, OTHER ==
[2021-05-22 16:09] LABS: COLLECTION METHOD CATHETER
[2021-05-22 16:27] LABS: MUCOUS Present /lpf; PH 8 (5-8); SQUAMOUS EPITHELIAL None Seen /hpf; URINE APPEARANCE Hazy; URINE BACTERIA Rare /hpf; URINE BILIRUBIN Negative (NEGATIVE); URINE BLOOD 1+ (NEGATIVE); URINE COLOR Straw; URINE GLUCOSE Negative (NEGATIVE); URINE KETONE Negative (NEGATIVE); URINE LEUKOCYTE ESTERASE 3+ (NEGATIVE); URINE NITRATE Positive (NEGATIVE); URINE PROTEIN(semi-quant) Negative (NEGATIVE); URINE UROBILINOGEN Negative (NEGATIVE)
== END ==
LOC: ZLAB.STJ 14:14
PROVIDERS: Family Medicine
DX: N39.0 Urinary tract infection, site not specified (principal)

== ENCOUNTER → 2021-06-04 | Outpatient (CLI) | payer MEDICARE, OTHER ==
[2021-06-04 14:03] LABS: HEMOGLOBIN 13.5 g/dl (13.5-18.0); MEAN CELL VOLUME 90 fl (80.0-100.0); MEAN CORPUSCULAR HEMOGLOBIN 30 pg (27.0-31.0); MEAN CORPUSCULAR HGB CONC 33 g/dl (33.0-37.0); MEAN PLATELET VOLUME 11.6 fl (7.4-10.4); PLATELET COUNT 279 K/mm3 (130-400); RED BLOOD COUNT 4.55 M/mm3 (4.20-5.60); REDCELL DISTRIBUTION WIDTH-CV 13.4 % (11.5-14.5)
[2021-06-04 14:22] LABS: BAND 4 % (0-10); LYMPHOCYTE 11 % (20.0-51.0); NEUTROPHILS 82 % (42.0-75.2); PLATELET ESTIMATE NORMAL (NORMAL)
[2021-06-04 14:27] LABS: ALBUMIN 2.8 gm/dL (3.4-4.8); BILIRUBIN,TOTAL 0.5 mg/dL (0.2-1.2); CALCIUM 8.5 mg/dL (8.4-10.2); CREATININE, serum 0.7 mg/dL (0.72-1.25); POTASSIUM 4.8 mmol/L (3.5-4.5); TOTAL PROTEIN 6.2 gm/dL (6.2-8.1)
[2021-06-05 14:55] LABS: COLLECTION METHOD CATHETER
[2021-06-05 15:14] LABS: AMORPHOUS CRYSTAL Present /uL; BUDDING YEAST Present /hpf; MUCOUS Present /lpf; PH 5 (5-8); SQUAMOUS EPITHELIAL None Seen /hpf; URINE APPEARANCE Turbid; URINE BACTERIA Rare /hpf; URINE BILIRUBIN Negative (NEGATIVE); URINE BLOOD Negative (NEGATIVE); URINE CALCIUM OXALATE CRYSTAL Present /hpf; URINE COLOR Amber; URINE GLUCOSE Negative (NEGATIVE); URINE KETONE Negative (NEGATIVE); URINE LEUKOCYTE ESTERASE 3+ (NEGATIVE); URINE NITRATE Negative (NEGATIVE); URINE PROTEIN(semi-quant) 1+ (NEGATIVE); URINE RBC >50 /hpf
== END ==
LOC: ZLAB.STJ 13:19
PROVIDERS: Family Medicine
DX: I10 Essential (primary) hypertension (principal); E11.8 Type 2 diabetes mellitus with unspecified complications; I69.00 Unspecified sequelae of nontraumatic subarachnoid hemorrhage

== ENCOUNTER → 2021-06-16 | Outpatient (CLI) | payer MEDICARE, OTHER ==
[2021-06-16 19:45] LABS: HEMATOCRIT 45.5 % (42.0-52.0); MEAN CELL VOLUME 91 fl (80.0-100.0); MEAN CORPUSCULAR HEMOGLOBIN 30 pg (27.0-31.0); MEAN CORPUSCULAR HGB CONC 33 g/dl (33.0-37.0); PLATELET COUNT 295 K/mm3 (130-400); RED BLOOD COUNT 5.01 M/mm3 (4.20-5.60); REDCELL DISTRIBUTION WIDTH-CV 13.4 % (11.5-14.5)
[2021-06-16 19:59] LABS: ALBUMIN 3.2 gm/dL (3.4-4.8); BILIRUBIN,TOTAL 0.3 mg/dL (0.2-1.2); CREATININE, serum 1.1 mg/dL (0.72-1.25); POTASSIUM 4.3 mmol/L (3.5-4.5); TOTAL PROTEIN 6.8 gm/dL (6.2-8.1)
[2021-06-16 20:08] LABS: LYMPHOCYTE 15 % (20.0-51.0); NEUTROPHILS 79 % (42.0-75.2); PLATELET ESTIMATE NORMAL (NORMAL)
== END ==
LOC: ZLAB.STJ 17:41
PROVIDERS: Nurse Practitioner Family
DX: E11.8 Type 2 diabetes mellitus with unspecified complications (principal); I10 Essential (primary) hypertension; Z79.899 Other long term (current) drug therapy

== ENCOUNTER → 2021-06-19 | Outpatient (CLI) | payer MEDICARE, OTHER ==
[2021-06-19 16:35] LABS: COLLECTION METHOD CATHETER
[2021-06-19 16:51] LABS: PH 5 (5-8); SQUAMOUS EPITHELIAL 0-2 /hpf; URINE APPEARANCE Clear; URINE BACTERIA None Seen /hpf; URINE BILIRUBIN Negative (NEGATIVE); URINE BLOOD Negative (NEGATIVE); URINE COLOR Yellow; URINE GLUCOSE Negative (NEGATIVE); URINE KETONE Negative (NEGATIVE); URINE LEUKOCYTE ESTERASE Negative (NEGATIVE); URINE NITRATE Negative (NEGATIVE); URINE PROTEIN(semi-quant) Negative (NEGATIVE); URINE UROBILINOGEN Negative (NEGATIVE)
== END ==
LOC: ZLAB.STJ 16:26
PROVIDERS: Family Medicine
DX: N39.0 Urinary tract infection, site not specified (principal)

== ENCOUNTER → 2021-07-03 | Outpatient (CLI) | payer MEDICARE, OTHER ==
[2021-07-03 17:57] LABS: CALCIUM 9.1 mg/dL (8.4-10.2); CREATININE, serum 0.72 mg/dL (0.72-1.25); POTASSIUM 4.2 mmol/L (3.5-4.5)
== END ==
LOC: ZLAB.STJ 16:57
PROVIDERS: Nurse Practitioner Family
DX: I10 Essential (primary) hypertension (principal)